=== PATIENT | female | born 1970 | race Caucasian/White ===

== ENCOUNTER 2018-08-12 08:08 | Inpatient (IN) ==
[2018-08-12 08:53] LABS: INFLUENZA A NEGATIVE (NEGATIVE); INFLUENZA B NEGATIVE (NEGATIVE)
[2018-08-12] MEDS ORDERED: DUONEB (A & A) INH ONE (09:42)
[2018-08-12] MEDS ORDERED: IMODIUM PO ONE (09:42)
[2018-08-12 10:04] LABS: BILIRUBIN URINE 1+ (NEGATIVE); BLOOD URINE NEGATIVE (NEGATIVE); CLARITY CLEAR (CLEAR); COLOR YELLOW; GLUCOSE URINE NEGATIVE (NEGATIVE); KETONE URINE NEGATIVE (NEGATIVE); LEUKOCYTES URINE NEGATIVE (NEGATIVE); NITRITE URINE NEGATIVE (NEGATIVE); PH URINE 6.5; PROTEIN URINE NEGATIVE (NEGATIVE); SP GRAVITY URINE 1.005; UROBILINOGEN URINE NORMAL
[2018-08-12 10:05] LABS: BASO# 0.04 X1000 (0.0-0.2); BASO% 0.3 % (0.0-0.8); EOS# 0.02 X1000 (0.0-0.7); EOS% 0.1 % (0.0-10.0); HEMATOCRIT 40.2 % (37.0-47.0); HEMOGLOBIN 13.1 g/dL (12.0-16.0); IMM GRAN# 0.05 X1000 (0.0-0.04); IMM GRAN% 0.4 % (0.0-0.5); LYMPH# 2.17 X1000 (1.2-3.4); LYMPH% 15.4 % (20.5-51.1); MCHC 32.6 g/dL (33-37); MCV 88.9 FL (81-99); MONO% 10.7 % (1.7-9.3); MPV 10.5 FL (7.4-10.4); NEUT# 10.27 X1000 (1.4-6.5); NEUT% 73.1 % (42.2-75.2); PLT 294 X1000 (130-400); RBC 4.52 XMIL (4.2-5.4); RDW 13.6 % (11.5-14.5); WBC 14.05 X1000 (4.8-10.8)
[2018-08-12 10:13] LABS: URINE EPITHELIAL CELLS <10 /HPF (<10); URINE SOURCE CLEAN CATCH
--- NOTE | 2018-08-12 10:37 | Diag Imaging Result Doc PS360 ---
EXAM: CHEST-2 VIEWS - 08/12/2018 HISTORY: cough TECHNIQUE: Chest two views COMPARISON: Portable exam of 04/09/2018 FINDINGS: Heart size is normal. There are calcified left hilar lymph nodes from old granulomatous disease similar to prior. There is ill-defined perihilar infiltrate on the left. There is no pleural effusion or pneumothorax identified. IMPRESSION: Ill-defined perihilar infiltrate on the left, suspicious for bronchopneumonia. Electronically signed by Gavin Berrios 08/12/2018 10:34 AM
[2018-08-12] MEDS ORDERED: COMPAZINE IV ONE (11:36)
[2018-08-12] MEDS ORDERED: BENADRYL IM ONE (11:36)
[2018-08-12] MEDS ORDERED: IMITREX SUBQ SUBQ ONE (11:52)
[2018-08-12] MEDS ORDERED: COGENTIN PO ONE (11:52)
[2018-08-12 11:54] LABS: BLOOD TYPE ARTERIAL; HCO3-(ACT) 21.6 mmoll (20.0-26.0); O2(CT) 17.9 mL/dL (15.0-23.0); O2HB 90.8 % (95.0-99.0); PCO2(98.6) 31 mmHg (35-45); PO2(98.6) 73 mmHg (60-100); SAMPLE BLOOD; SAO2 90.8 % (95.0-100.0); pH(98.6) 7.41 (7.35-7.45)
[2018-08-12 12:00] LABS: ALLEN TEST YES; MODALITY ROOM AIR
[2018-08-12] MEDS ORDERED: NS 3,000 ML IV ONE (12:34)
[2018-08-12] MEDS ORDERED: ROCEPHIN 2 GM in NS 50 ML IV ONE (12:35)
[2018-08-12 13:46] LABS: AGAP 14; ALBUMIN 3.2 g/dL (3.5-5.0); ALKALINE PHOSPHATASE 95 U/L (32-104); BUN 4 mg/dL (8-22); CALCIUM 8.4 mg/dL (8.8-10.2); CHLORIDE 107 mmol/L (98-107); COSMO 276; CREATININE 0.7 mg/dL (0.5-0.9); ESTIMATED GFR > 60; GLUCOSE 162 mg/dL (70-104); GOT 33 U/L (10-30); GPT 30 U/L (10-36); POTASSIUM 3.6 mmol/L (3.5-5.1); SODIUM 138 mmol/L (136-145); TCO2 17 mmol/L (25-35); TOTAL PROTEIN 6.5 g/dL (6.3-8.3)
[2018-08-12] MEDS ORDERED: MARCAINE 0.5% INJ ONE (14:53)
[2018-08-12] MEDS ORDERED: XYLOCAINE 2%/EPI 1:200,000 INJ ONE (14:53)
[2018-08-12] MEDS ORDERED: MARCAINE 0.5% PF ONE (15:03)
--- NOTE | 2018-08-12 15:35 | PROVIDER DOCUMENTATION ---
This chart was entered by Analisa Nicolas Scribe, acting as scribe for Maldonado Rubio MD. HPI-General Adult - General Chief Complaint: Cold Symptoms Stated Complaint: SWEATING / SORE THROAT / DIARREAH Time Seen by Provider: 08/12/18 09:00 Source: patient Allergies/Adverse Reactions: Patient Allergies Allergy/AdvReac Type Severity Reaction Status Date / Time trazodone Allergy Severe RASH Verified 08/12/18 14:49 ziprasidone HCl * Allergy Severe HEADACHE Verified 08/12/18 14:49 [From Geodon] ziprasidone mesylate * Allergy Severe HEADACHE Verified 08/12/18 14:49 [From Geodon] diphenhydramine Allergy SWELLING Verified 08/12/18 14:49 [From Benadryl] hemorrhoid cream Allergy Unknown Uncoded 08/12/18 14:49 Home Medications: Home Medication List Medication Instructions Recorded Confirmed Last Taken Type Tolterodine L.a. [Detrol LA] 4 mg PO DAILY #60 cap 11/23/17 08/12/18 05/18/18 Rx Gabapentin [Neurontin] 300 mg PO TID #90 capsule 11/25/17 08/12/18 05/19/18 18: 00 Rx Famotidine 40 mg PO HS 01/05/18 08/12/18 05/19/18 18:00 History Lisinopril/Hydrochlorothiazide 10 - 12.5 each PO DAILY 01/05/18 08/12/18 05:00 History [Lisinopril-Hctz 10-12.5 mg Tab] Ondansetron HCl 8 mg PO DAILY PRN PRN 01/05/18 05/20/18 05/18/18 History Ropinirole HCl 1 mg PO QHS 01/05/18 08/12/18 05/19/18 18:00 History Hydrocodone/APAP 5 mg/325 mg 1 ea PO TID PRN PRN #20 tab 01/08/18 05/20/1805/18 Rx [[place]-5] Rizatriptan [Maxalt] 10 mg PO DAILY PRN PRN #10 tab 01/08/18 08/12/18 05/19/18 Rx Biotin 1,000 mcg PO DAILY 05/20/18 05/20/18 05/19/18 05:00 History Chlorpheniramine Maleate 4 mg PO DAILY 05/20/18 05/20/18 05/19/18 05:00 History Divalproex E.r. [Depakote ER] 500 mg PO BID 05/20/18 05/20/18 05/19/18 18:00 History Divalproex Sodium 500 mg PO HS 05/20/18 08/12/18 05/19/18 18:00 History Duloxetine HCl [Cymbalta] 30 mg PO HS 05/20/18 05/20/18 05/19/18 18:00 History Duloxetine HCl [Cymbalta] 60 mg PO DAILY 05/20/18 08/12/18 05/19/18 05:00 History Etodolac 500 mg PO BID PRN PRN 05/20/18 08/12/18 05/19/18 18:00 History Ferrous Sulfate [Iron] 27 mg PO DAILY 05/20/18 05/20/18 05/19/18 18:00 History Hydrocodone/Acetaminophen [[place] 1 each PO Q4-6H PRN PRN #30 tablet 05/20/1809/30 Unknown Rx 7.5-325 Tablet] Hydroxyzine HCl 50 mg PO HS 05/20/18 06/14/18 05/19/18 18:00 History Levothyroxine Sodium [Synthroid] 50 mcg PO DAILY 05/20/18 08/12/18 05/19/18 05: 00 History Melatonin 10 mg PO HS 05/20/18 08/12/18 05/19/18 18:00 History Mirtazapine [Remeron] 15 mg PO HS 05/20/18 08/12/18 05/19/18 18:00 History Olanzapine 20 mg PO BID 05/20/18 08/12/18 05/19/18 18:00 History [place]-3S/Dha/Epa/Fish Oil [Fish 1 each PO DAILY 05/20/18 05/20/18 05/19/18 05: 00 History Oil 1,200 mg Softgel] Tizanidine HCl 4 mg PO HS 05/20/18 08/12/18 05/19/18 18:00 History Tolterodine Tartrate [Tolterodine 4 mg PO DAILY 05/20/18 05/20/18 05/19/18 05: 00 History Tartrate ER] Vit A/Vit C/Vit E/Zinc/Copper 1 each PO DAILY 05/20/18 05/20/18 05/19/18 05:00 History [Preservision Areds Softgel] Hydroxyzine [Atarax] 50 mg PO QHS #60 tab 06/14/18 08/12/18 Unknown Rx Albuterol 2.5MG/Ipratrop 0.5MG 3 ml INH Q6H PRN PRN #120 neb 08/12/18 Unknown Rx [Duoneb] Gabapentin 08/12/18 08/12/18 Unknown History Levofloxacin [Levaquin] 750 mg PO DAILY #10 tablet 08/12/18 Unknown Rx [place]-3S/Dha/Epa/Fish Oil [Fish 1 each PO DAILY 08/12/18 08/12/18 Unknown History Oil 1,200 mg Softgel] - History of Present Illness -Gen Adult Nature of Presenting Problems: 48 yof presents to ed with cc of cough, sorethroat, diaphoresis x 2 days with resolved fever last night and diarrhea that started this morning. Reports has tried sudafed, nyquil, honey tea and inhaler with no relief. Alberto is a 1/2 ppd smoker. Review of Systems - Adult - REVIEW OF SYSTEMS - ADULT Constitutional: reports: fever. denies: chills, fatique Eyes: reports: no symptoms reported Ears, Nose, Mouth & Throat: reports: throat pain. denies: ear pain, sinus problem Cardiovascular: denies: chest pain, irregular heart rate, orthopnea, syncope Respiratory: reports: cough. denies: shortness of breath, wheezing Gastrointestinal: reports: diarrhea. denies: abdominal pain, nausea, vomiting Genitourinary: denies: discharge, flank pain, hematuria Musculoskeletal: reports: no symptoms reported Integumentary: reports: no symptoms reported Neurological: denies: dizziness/vertigo, headache/migraines, numbness, seizure Psychiatric: reports: no symptoms reported Endocrine: denies: change in skin pigment, cold intolerance, heat intolerance Hematologic/Lymphatic: reports: no symptoms reported Allergic/Immunologic: reports: no symptoms reported All Other Systems: Reviewed and Negative Past History - Adult - PAST MEDICAL HISTORY-ADULT Review of Records: reports: Nursing Assessment Review, Medications Reviewed Major Childhood Illnesses: reports: denies history Cardiovascular: reports: HTN, hyperlipidemia Respiratory: reports: asthma, COPD, sleep apnea Gastrointestinal: reports: other Obstetrical/Gynecological: reports: denies history Genitourinary: reports: denies history Musculoskeletal: reports: chronic pain, intervertebral disc disease Neurological: reports: CVA, Seizures/Epilepsy Psychiatric: reports: bipolar, depression, psychiatric problems, schizophrenia Endocrine/Immune: reports: Diabetes Other Conditions: reports: denies history - PRIOR SURGERIES/PROCEDURES Surgical/Procedure History: reports: hysterectomy, BTL, tonsillectomy, hernia repair, orthopedic (extremity) (knee), gastric bypass, other (T&A) - IMMUNIZATION STATUS Childhood Immunizations: See Nurse Assessment Flu Vaccine: See Nurse Assessment - FAMILY HISTORY Family History: reviewed, not pertinent - SOCIAL HISTORY Smoking: cigarettes, less than 1 pack/day Provider spent 3-5 mins advising pt. on dangers of tobacco.: Discussed manners to quit use, and f/u contacts for add'l counseling. Substance Use: none/never Physical Exam-General - PHYSICAL EXAM-ADULT Initial Vital Signs Reviewed: Yes - CONSTITUTIONAL General Appearance: appears well, alert, mild distress - EYES Eyes: PERRL/EOMI, pink conjunctivae - HEAD, EARS, NOSE, MOUTH & THROAT HENMT: normal ENT inspection, TMs normal, pharynx normal. negative: pharyngeal erythema - NECK Neck: non-tender, full range of motion, supple, normal inspection - RESPIRATORY Respiratory: chest non-tender, lungs clear, normal breath sounds, no pleuratic chest pain, no respiratory distress, no accessory muscle use, other (does have cough on exam) - CARDIOVASCULAR Cardiovascular: tachycardia - GASTROINTESTINAL (ABDOMEN) Abdominal Exam: soft, no organomegaly, no pulsatile mass - MUSCULOSKELETAL Extremity: normal range of motion, non-tender, normal gait - SKIN Integumentary: normal color, normal turgor, warm/dry - NEUROLOGIC Neurologic: station master II-XII nml as tested, grossly normal, no motor/sensory deficits - PSYCHIATRIC Psych/Mental Status: normal mood/affect, normal thought content, normal thought process, oriented x 3 Progress - PLAN OF CARE/RESULTS Progress/Plan/Lab Results: Vital Signs - 8 hr 08/12/18 08:20 Temperature 98.3 F Pulse Rate 104 H Respiratory Rate 19 Blood Pressure 134/89 O2 Sat by Pulse Oximetry 97 Laboratory Results - last 24 hr 08/12/18 08/12/18 08:24 08:24 Influenza A (Rapid) NEGATIVE Influenza B (Rapid) NEGATIVE Group A Strep Rapid NEGATIVE Orders Category Date Time Status DIRECT STREP PL Stat Lab 08/12/18 08:[address] Stat Lab 08/12/18 08:24 Completed Result Diagrams: 08/12/18 09:45 08/12/18 09:45 - REASSESSMENT Reassessment #1 Time Reassessed: 11:30 (Pt requesting admission, Dr. Hutton paiged at 11:30. Pt reports now has a headached.) Reassessment #2 Time Reassessed: 11:50 Status: unchanged (pt started a new migraine headache. She states that she took a maxalt 10 mg at home early this morning) Reassessment #3 Time Reassessed: 15:33 Status: improving (GONB worked for the headache, family feels ok with care at home. Dr Hutton wants her home) - XRAY 1 XRAY: Bilateral XRAY Study: Chest Impression: Abnormal (IMPRESSION: Ill-defined perihilar infiltrate on the left, suspicious for bronchopneumonia. Electronically signed by Gavin Berrios 10:34 AM) - CONSULTS/PCP/HOSPITALIST Notification #1 *Consult/PCP/Hospitalist*: Dr. Hutton Time Discussed: 11:37 (Dr. Rubio and Dr. Hutton discussed admission of this pt and has agreed she does not meet admission criteria and can be treated outpatient.) Procedures - ADDITIONAL PROCEDURES Additional Procedure: Digital Nerve Block (greater occipital nerve block left and right side) Consent Form Signed if Applicable?: Yes Anesthetic: 2%, Lidocaine/Xylocaine, Bupivicaine/Marcaine Description of Procedure (Other): Pt still complains of headache will be doing a greater occipital nerve block. Departure - Departure Date of Disposition Decision: 08/12/18 Time of Disposition Decision: 11:42 DIAGNOSIS: Pneumonia Qualifiers: Pneumonia type: due to unspecified organism Laterality: bilateral Lung location : unspecified part of lung Qualified Code(s): J18.9 - Pneumonia, unspecified organism Migraine Qualifiers: Migraine type: with aura Status migrainosus presence: without status migrainosus Intractability: not intractable Qualified Code(s): G43.109 - Migraine with aura, not intractable, without status migrainosus Disposition: HOME 01 Certified Medical Emergency: Emergent Condition: Stable Additional Freetext Instructions: ED Follow Up Instructions: 1. do not take hydroxyzine while using this antibiotic You have been treated by a care provider in the Emergency Department. These instructions are being provided to you so you can have an understanding of how to care for yourself upon discharge. Upon discharge from the Emergency Department, you are responsible for making arrangements for follow-up care by a physician of your choice. Take all prescribed medications as directed. Return to the Emergency Department immediately for any new or worsening symptoms. You may call the Physician Referral phone number at [phone] to obtain a list of Physicians who are taking new patients. Prescriptions: Albuterol 2.5MG/Ipratrop 0.5MG [Duoneb] 3 ml INH Q6H PRN PRN #120 neb PRN Reason: wheezing, short of breath Levofloxacin [Levaquin] 750 mg PO DAILY #10 tablet Referrals and Follow-Ups: None,PCP [Primary Care Provider] - - Critical Care Note This patient required my direct & personal management of CC.: No Attestation - Physician/ CARLOS Attestation Patient care was provided by Advanced Practice Provider:: No The physician spent face to face time with patient:: Yes Advanced Practice Provider documentation review:: Supervising physician onsite and consulted in the evaluation and care of this patient. The physician did have a face to face encounter with the patient. This chart was documented by the indicated scribe, (Analisa Nicolas Scribe) and accurately reflects the services I performed and decisions made by me, Maldonado Rubio MD, as attested by the provider's signature.
[2018-08-12] MEDS ORDERED: TYLENOL ONE (15:49)
[2018-08-12] MEDS ORDERED: TYLENOL PO ONE (15:51)
[2018-08-12] MEDS ORDERED: NS 1,000 ML IV SCH (18:06)
[2018-08-12] MEDS ORDERED: SOLU-MEDROL IV SCH (18:06)
[2018-08-12] MEDS ORDERED: ZOFRAN IV PRN (18:06)
[2018-08-12] MEDS ORDERED: TYLENOL PO PRN (18:06)
--- NOTE | 2018-08-12 18:10 | HISTORY AND PHYSICAL ---
PRIMARY CARE PHYSICIAN: Dr. Santa. CHIEF COMPLAINT: Cough, sore throat, diaphoresis, shortness of breath and a headache for 2 days that has progressively worsened. HISTORY OF PRESENTING ILLNESS: This is a 48-year-old female who presents to [facility] ER with her mom stating that she has had a cough sore throat, diaphoresis, headache and shortness of breath for the past 2 days that has progressively worsened. She also complained of a headache and was given a digital nerve block with 2% lidocaine, Xylocaine and bupivacaine and Marcaine in the emergency room. Headache is slightly improved. Her workup in the emergency room showed on arrival a temperature of 98.3 degrees. She was saturating 97% on room air. About 1 hour ago her temperature was 101.2 degrees but when I saw her she was covered up with 4 blankets. I removed these blankets. She had a white blood cell count was 14.05. We did a chest x-ray that showed an ill-defined perihilar infiltrate on the left suspicious for bronchopneumonia so she is being admitted for further evaluation and treatment. It is noted that she is a pack a day smoker and has done so for approximately 30 years. I discussed smoking cessation with this patient, who did verbalize understanding. She does have a strong psychiatric history of schizophrenia, bipolar, OCD, also. PAST MEDICAL HISTORY: Includes hypertension, hyperlipidemia, COPD, asthma, CVA, seizures, bipolar, schizophrenia and diabetes type 2. PAST SURGICAL HISTORY: Hysterectomy, bilateral tubal ligation. Tonsillectomy, gastric bypass and a knee replacement. FAMILY HISTORY: Reviewed and noncontributory. SOCIAL HISTORY: She currently lives alone but is cared for by her mother who lives next door to her. Smokes a pack of cigarettes a day and has done so for 30 years and denies any alcohol or illicit drug use. ALLERGIES: Trazodone, ziprasidone, diphenhydramine and hemorrhoid cream. HOME MEDICATIONS: Will need to be verified and restarted as appropriate. LABORATORY DATA: Showed a white blood cell count of 14.05. Hemoglobin 13.1, hematocrit 40.2, platelets 294,000. ABG with a pH of 7.41, pCO2 31, PO2 73, bicarb 21.6. This was on room air. Sodium 138, potassium 3.6, chloride 107, CO2 17, BUN of 4, creatinine 0.7, glucose 162, plasma lactate of 1.7, urinalysis was negative. Influenza A and B were negative. Group A strep negative. Chest x-ray showed an ill-defined perihilar infiltrate on the left suspicious for bronchopneumonia. REVIEW OF SYSTEMS: She was positive for a subjective fever, chills, body aches, sore throat, diaphoresis, headache shortness of breath and nonproductive cough. She denied any chest pain, abdominal pain, constipation, diarrhea, nausea, vomiting, or burning or hurting with urination. PHYSICAL EXAMINATION: VITAL SIGNS: On arrival, she had a temperature of 98.3 degrees, pulse 104, respirations 19, blood pressure 134/89, saturating 97% on room air. Almost 8 hours later she had a temperature of 101.2 degrees. Again she was covered in 4 heavy blankets so we removed those and will recheck it again. HEENT: Normocephalic and atraumatic. Normal ENT inspection. Oropharynx and nares are clear. EYES: Pupils are equal, round, reactive to light and accommodation. Extraocular movements are intact. NECK: Normal inspection. Normal range of motion. LUNGS: Clear to auscultation bilaterally with equal lung expansion and chest wall movement. HEART: Regular rate and rhythm. No murmurs, rubs, or gallops. ABDOMEN: Soft, nontender, nondistended. Bowel sounds are present x4 quadrants. MUSCULOSKELETAL: She has 5/5 strength x4 extremities. NEUROLOGICAL: The cranial nerves 2-12 appear grossly intact. ASSESSMENT: 1. Left bronchial pneumonia. 2. Acute chronic obstructive pulmonary disease exacerbation. 3. Leukocytosis secondary to #1 and #2. 4. Fever. 5. Tobacco abuse. PLAN: She is being admitted to the medical unit. Placed on O2 per protocol. We will place her on Rocephin and azithromycin. DuoNeb q.4 hours. We will recheck a CBC, BMP in the a.m. We will place her on Solu-Medrol 80 mg IV q.8 hours and wean as she improves. Discussed again smoking cessation with this patient. We will give her a nicotine patch 21 mg transdermally q.24 and further orders after being seen by attending. Dictated by SHAHAB Loo for Juan Manuel Hutton MD cc: SHAHAB Loo MD
[2018-08-12] MEDS ORDERED: DUONEB (A & A) ONE (18:12)
[2018-08-12] MEDS: ZITHROMAX 500 MG/NS 500 MG/250 ML IVPB IV SCH (18:27)
[2018-08-12] MEDS: DUONEB (A & A) INH SCH (18:40)
[2018-08-12] MEDS ORDERED: MOTRIN PO PRN (18:49)
[2018-08-12] MEDS ORDERED: MAXALT PO PRN (19:43)
[2018-08-12] MEDS: SOLU-MEDROL IV SCH (19:45)
[2018-08-12] MEDS: NICODERM PATCH TD SCH (19:49)
[2018-08-12] MEDS: NS 1,000 ML IV SCH (19:49)
--- NOTE | 2018-08-12 20:00 | HISTORY AND PHYSICAL ---
Briefly patient is 48. She seems to be doing not well for last several days. She has had shortness of breath, she has had multiple issues. She came in with a pneumonia. Her chest x-ray to me is a bit odd I am perhaps over reading it but it feels like she has got a left perihilar granuloma or almost a mass I do not know it is almost very strange. I guess it is a granuloma because it is heavily calcified and it is behind the left mainstem but pneumonia on both sides, seems to be doing okay but has persistent fevers, white count, she has rhonchi on exam so need to feel that she is doing better. In any case we are going to see how she does. Her flu test was negative and she was doing better. We will continue empiric antibiotics. She has been started on Rocephin and azithromycin and we will continue gentle hydration and follow. I am going to cut down on her steroids a little bit. She has a fairly extensive psychiatric history. I just do not want her to have significant issues. I think her breathing has improved since initially. Discharge condition is pending afebrile state and improvement. I am going to pursue a CT of her thorax as well just because I am just not sure about this large granuloma but we will continue to follow closely. cc: Juan Manuel Hutton MD
[2018-08-12] MEDS: ZYPREXA PO SCH (21:38)
[2018-08-12] MEDS: DEPAKOTE PO SCH (21:38)
[2018-08-12] MEDS: PEPCID PO SCH (21:38)
[2018-08-12] MEDS: MELATONIN PO SCH (21:39)
[2018-08-12] MEDS: REQUIP PO SCH (21:39)
[2018-08-12] MEDS: REMERON SOLTAB PO SCH (21:39)
[2018-08-12] MEDS: ZANAFLEX PO SCH (21:39)
[2018-08-12] MEDS ORDERED: PNEUMOVAX 23 IM ONE (22:07)
[2018-08-13] MEDS: DUONEB (A & A) INH SCH ×7 (00:19→23:07)
[2018-08-13] MEDS: NS 1,000 ML IV SCH ×2 (01:43→20:24)
[2018-08-13] MEDS: SOLU-MEDROL IV SCH ×2 (03:24→11:28)
[2018-08-13] MEDS: LOVENOX SUBQ SCH (05:23)
[2018-08-13 06:17] LABS: BASO# 0.03 X1000 (0.0-0.2); BASO% 0.2 % (0.0-0.8); HEMATOCRIT 37.9 % (37.0-47.0); HEMOGLOBIN 12.1 g/dL (12.0-16.0); IMM GRAN# 0.06 X1000 (0.0-0.04); IMM GRAN% 0.4 % (0.0-0.5); LYMPH# 1.27 X1000 (1.2-3.4); LYMPH% 9.3 % (20.5-51.1); MCH 28.6 PG (27-31); MCHC 31.9 g/dL (33-37); MCV 89.6 FL (81-99); MONO# 1.04 X1000 (0.11-0.59); MONO% 7.6 % (1.7-9.3); MPV 10.7 FL (7.4-10.4); NEUT# 11.28 X1000 (1.4-6.5); NEUT% 82.5 % (42.2-75.2); PLT 293 X1000 (130-400); RBC 4.23 XMIL (4.2-5.4); RDW 13.9 % (11.5-14.5); WBC 13.68 X1000 (4.8-10.8)
[2018-08-13 06:36] LABS: AGAP 14; BUN 5 mg/dL (8-22); CALCIUM 8.3 mg/dL (8.8-10.2); CHLORIDE 106 mmol/L (98-107); COSMO 281; CREATININE 0.6 mg/dL (0.5-0.9); ESTIMATED GFR > 60; GLUCOSE 178 mg/dL (70-104); POTASSIUM 4.3 mmol/L (3.5-5.1); SODIUM 140 mmol/L (136-145); TCO2 20 mmol/L (25-35)
[2018-08-13] MEDS: NICODERM PATCH TD SCH (08:26)
[2018-08-13] MEDS: ZYPREXA PO SCH ×2 (08:27→20:26)
[2018-08-13] MEDS: SYNTHROID PO SCH (08:27)
[2018-08-13] MEDS: CYMBALTA PO SCH (08:28)
[2018-08-13] MEDS: NEURONTIN PO SCH ×3 (08:30→20:26)
[2018-08-13] MEDS: DETROL LA PO SCH (08:38)
--- NOTE | 2018-08-13 10:21 | Diag Imaging Result Doc PS360 ---
EXAM: CT THORAX W/CONTRAST INDICATION: pneumonia TECHNIQUE: This exam was performed using automated exposure control, adjustment of mA or kV according to patient size, and/or use of iterative reconstruction technique. COMPARISON: 12/13/2015 FINDINGS: There are patchy dense groundglass consolidation throughout both lungs but more extensive on the left consistent with pneumonia. Although this may represent infectious pneumonia, inflammatory causes such as eosinophilic pneumonia can have this appearance. There are no pleural fluid collections and there is no pneumothorax. There are calcified mediastinal and left hilar lymph nodes indicating prior granulomatous disease. No other significant lymphadenopathy is appreciated. There is no cardiomegaly. There is no abnormal pericardial fluid collection. Limited views of the upper abdomen reveal several simple appearing renal cysts. There are postsurgical changes associated with the stomach. The upper abdomen is essentially unremarkable, otherwise. IMPRESSION: Dense patchy groundglass consolidation throughout both lungs, worst on the left, indicating pneumonia. Please see above discussion. Electronically signed by Ki Parker 08/13/2018 10:18 AM
[2018-08-13] MEDS: ROCEPHIN 1 GM in NS 50 ML IV SCH (11:28)
--- NOTE | 2018-08-13 14:57 | PROGRESS NOTE ---
DATE: 08/13/2018 SUBJECTIVE: The patient has no focal complaints. OBJECTIVE: Vital Signs: Blood pressure is 128/57, heart rate 90, respiratory rate 22, temperature 98.5 degrees. Last temperature was 101.9 degrees yesterday at 6:30; she has not had a fever since. Cardiovascular: Regular rate and rhythm. Pulmonary: Bilateral breath sounds. Clear to auscultation. GI: Soft, nontender, nondistended. Bowel sounds are positive. Extremity Exam: No clubbing or cyanosis. Lymphatic Exam: No peripheral edema. Neurological Exam: Nonfocal. LABORATORY DATA: White count is down to 13, H and H 12 and 37, platelets 293. Basic was normal, except for sugar of 211. PROBLEM LIST: 1. Multilobar pneumonia. We will see how things go there. She seems to be breathing better on current antibiotics. 2. Chronic obstructive pulmonary disease exacerbation is also slowly improving. I am going to wean steroids rapidly just because she is diabetic, and I think it may be exacerbating things. Again, she has a bipolar history. I just do not want to worsen any manic symptoms potentially. 3. Hypertension appears to be stable. 4. Diabetes. She is not on any long-term medicines. It is reported she is diabetic. Her sugar is above 200. We will check an A1c, monitor blood sugars, and see how she does. 5. Bipolar disorder. Again, appears to be very compensated. DISPOSITION: She seems better. I anticipate she is going to be discharged in the next 1 to 2 days, anticipating foregoing any hopefully major problems. cc: Juan Manuel Hutton MD
[2018-08-13] MEDS: ZITHROMAX 500 MG/NS 500 MG/250 ML IVPB IV SCH (17:35)
[2018-08-13] MEDS: ZANAFLEX PO SCH (20:25)
[2018-08-13] MEDS: DEPAKOTE PO SCH (20:25)
[2018-08-13] MEDS: MELATONIN PO SCH (20:25)
[2018-08-13] MEDS: PEPCID PO SCH (20:25)
[2018-08-13] MEDS: REQUIP PO SCH (20:26)
[2018-08-13] MEDS ORDERED: HUMULIN R SUBQ SCH (21:00)
[2018-08-13] MEDS: REMERON SOLTAB PO SCH (23:05)
[2018-08-14] MEDS: SOLU-MEDROL IV SCH ×3 (00:03→21:27)
[2018-08-14] MEDS: DUONEB (A & A) INH SCH ×6 (03:02→23:04)
[2018-08-14 06:13] LABS: AGAP 17; BUN 7 mg/dL (8-22); CALCIUM 8.6 mg/dL (8.8-10.2); CHLORIDE 104 mmol/L (98-107); COSMO 287; CREATININE 0.6 mg/dL (0.5-0.9); ESTIMATED GFR > 60; GLUCOSE 201 mg/dL (70-104); POTASSIUM 4.8 mmol/L (3.5-5.1); SODIUM 142 mmol/L (136-145); TCO2 21 mmol/L (25-35)
[2018-08-14 06:19] LABS: BASO# 0.03 X1000 (0.0-0.2); BASO% 0.2 % (0.0-0.8); HEMATOCRIT 35.5 % (37.0-47.0); HEMOGLOBIN 11.3 g/dL (12.0-16.0); IMM GRAN# 0.07 X1000 (0.0-0.04); IMM GRAN% 0.6 % (0.0-0.5); LYMPH# 1.45 X1000 (1.2-3.4); LYMPH% 11.9 % (20.5-51.1); MCH 28.5 PG (27-31); MCHC 31.8 g/dL (33-37); MCV 89.6 FL (81-99); MONO# 0.76 X1000 (0.11-0.59); MONO% 6.2 % (1.7-9.3); MPV 10.9 FL (7.4-10.4); NEUT# 9.89 X1000 (1.4-6.5); NEUT% 81.1 % (42.2-75.2); PLT 317 X1000 (130-400); RBC 3.96 XMIL (4.2-5.4)
[2018-08-14] MEDS: LOVENOX SUBQ SCH (06:21)
[2018-08-14] MEDS: SYNTHROID PO SCH (06:21)
[2018-08-14 06:30] LABS: BANDS 3 % (0-1); LYMPHS 9 % (21-51); MONO 8 % (1-9); SEGS 77 % (42-75)
[2018-08-14 06:33] LABS: OVALOCYTES OCCASIONAL; POIKILOCYTOSIS OCCASIONAL; TARGET CELLS OCCASIONAL
[2018-08-14 06:34] LABS: STOMATOCYTES OCCASIONAL
[2018-08-14] MEDS ORDERED: MAXALT MLT PO PRN (07:00)
[2018-08-14] MEDS: HUMULIN R (PARKWAY) SUBQ SCH ×4 (07:03→21:29)
[2018-08-14] MEDS: ZYPREXA PO SCH ×2 (08:20→21:27)
[2018-08-14] MEDS: NICODERM PATCH TD SCH (08:21)
[2018-08-14] MEDS: NEURONTIN PO SCH ×2 (08:21→17:05)
[2018-08-14] MEDS: CYMBALTA PO SCH ×2 (08:21→21:28)
[2018-08-14] MEDS: DETROL LA PO SCH ×2 (08:21→21:28)
[2018-08-14] MEDS: NS 1,000 ML IV SCH (13:10)
[2018-08-14] MEDS: ROCEPHIN 1 GM in NS 50 ML IV SCH (13:10)
[2018-08-14] MEDS: ZITHROMAX PO SCH (17:05)
[2018-08-14] MEDS ORDERED: TORADOL IV ONE (17:40)
[2018-08-14] MEDS: PROTONIX IV SCH (18:43)
[2018-08-14] MEDS: ROBITUSSIN-AC PO PRN (18:43)
[2018-08-14] MEDS: SODIUM CHLORIDE 0.9% INJ SCH (18:44)
[2018-08-14] MEDS: MUCOMYST 20% INH SCH (19:22)
--- NOTE | 2018-08-14 20:47 | PROGRESS NOTE ---
DATE: 08/14/2018 SUBJECTIVE: She does not feel good today. She feels like she has got diffuse aches and pains. OBJECTIVE: Vital Signs: Blood pressure is 129/61, heart rate of 111, respiratory 19, temperature 97.6. Cardiovascular: Regular rate and rhythm. Pulmonary: Bilateral breath sounds. Clear to auscultation. She has diffuse rhonchi and expiratory wheezes. Gastrointestinal: Soft, nontender, nondistended. Bowel sounds positive. LABORATORY DATA: White count is 12, hemoglobin and hematocrit 11 and 35, platelets 317,000. Basic was normal. PROBLEM LIST: 1. Multilobar pneumonia, gram negative type. We will continue her current antibiotics. Overall, I think she is improving. 2. COPD exacerbation. We will increase the Solu-Medrol. We will continue to follow closely. 3. Bipolar. Appears to be stable on current medications. 4. Hypertension. We will continue her regular medications and follow. 5. Diabetes. A1c is 6, which does not technically meet criteria, but she has had a couple blood sugars that are elevated. This may be related to steroid-induced hyperglycemia. We will continue to monitor. She is on sliding scale. 6. Bipolar, appears to be stable. 7. I am going to repeat her x-ray tomorrow and see if there has been any major improvement. cc: Juan Maneul Hutton MD
[2018-08-14] MEDS: MELATONIN PO SCH (21:26)
[2018-08-14] MEDS: ZANAFLEX PO SCH (21:27)
[2018-08-14] MEDS: REMERON SOLTAB PO SCH (21:27)
[2018-08-14] MEDS: REQUIP PO SCH (21:27)
[2018-08-14] MEDS: PEPCID PO SCH (21:28)
[2018-08-14] MEDS: DEPAKOTE PO SCH (21:28)
[2018-08-15] MEDS: DUONEB (A & A) INH SCH ×6 (02:56→23:05)
[2018-08-15] MEDS: ROBITUSSIN-AC PO PRN ×2 (04:00→15:49)
[2018-08-15] MEDS: SOLU-MEDROL IV SCH ×3 (04:12→20:27)
[2018-08-15] MEDS: LOVENOX SUBQ SCH (05:16)
[2018-08-15] MEDS: NS 1,000 ML IV SCH (05:20)
[2018-08-15] MEDS: HUMULIN R (PARKWAY) SUBQ SCH ×3 (06:03→18:00)
[2018-08-15] MEDS: SYNTHROID PO SCH (06:07)
[2018-08-15 06:30] LABS: BASO# 0.04 X1000 (0.0-0.2); BASO% 0.3 % (0.0-0.8); EOS# 0.01 X1000 (0.0-0.7); EOS% 0.1 % (0.0-10.0); HEMOGLOBIN 11.5 g/dL (12.0-16.0); IMM GRAN# 0.14 X1000 (0.0-0.04); IMM GRAN% 1.2 % (0.0-0.5); LYMPH# 1.43 X1000 (1.2-3.4); LYMPH% 12.1 % (20.5-51.1); MCH 28.6 PG (27-31); MCHC 31.9 g/dL (33-37); MCV 89.6 FL (81-99); MONO# 0.63 X1000 (0.11-0.59); MONO% 5.3 % (1.7-9.3); MPV 11.1 FL (7.4-10.4); PLT 337 X1000 (130-400); RBC 4.02 XMIL (4.2-5.4); WBC 11.85 X1000 (4.8-10.8)
[2018-08-15 06:50] LABS: AGAP 13; BUN 10 mg/dL (8-22); CALCIUM 8.5 mg/dL (8.8-10.2); CHLORIDE 106 mmol/L (98-107); COSMO 288; CREATININE 0.5 mg/dL (0.5-0.9); ESTIMATED GFR > 60; GLUCOSE 164 mg/dL (70-104); POTASSIUM 5.2 mmol/L (3.5-5.1); SODIUM 143 mmol/L (136-145); TCO2 24 mmol/L (25-35)
[2018-08-15 06:54] LABS: LYMPHS 15 % (21-51); MONO 5 % (1-9); SEGS 85 % (42-75)
[2018-08-15] MEDS: MUCOMYST 20% INH SCH ×2 (07:24→17:52)
--- NOTE | 2018-08-15 07:35 | Diag Imaging Result Doc PS360 ---
EXAM: CHEST-2 VIEWS HISTORY: hypoxia TECHNIQUE: Chest, two views COMPARISON: 08/12/2018 FINDINGS: There are infiltrates in both mid lungs. The heart is not enlarged. The vessels are not distended. No pleural effusions. IMPRESSION: Bilateral pneumonia. Electronically signed by Kevon Lafleur 08/15/2018 7:32 AM
[2018-08-15] MEDS: ZYPREXA PO SCH ×2 (08:37→20:25)
[2018-08-15] MEDS: CYMBALTA PO SCH ×2 (08:38→20:26)
[2018-08-15] MEDS: DEPAKOTE PO SCH ×2 (08:39→20:26)
[2018-08-15] MEDS: PRINIVIL PO SCH (08:39)
[2018-08-15] MEDS: HYDROCHLOROTHIAZIDE PO SCH (08:39)
[2018-08-15] MEDS: NEURONTIN PO SCH ×3 (08:39→18:02)
[2018-08-15] MEDS: NICODERM PATCH TD SCH (08:39)
[2018-08-15] MEDS: ROCEPHIN 1 GM in NS 50 ML IV SCH (12:30)
[2018-08-15] MEDS ORDERED: MUCOMYST 20% INH ONE (13:53)
[2018-08-15] MEDS ORDERED: LASIX IV ONE (14:59)
--- NOTE | 2018-08-15 15:24 | PROGRESS NOTE ---
DATE: 08/15/2018 SUBJECTIVE: The patient has no focal complaints. OBJECTIVE: Vital Signs: Blood pressure is 110/68, heart rate of 80, respiratory rate 22, temperature 98.4 degrees, satting 90% on 3 L. Cardiovascular: Regular rate and rhythm. Pulmonary: Bilateral breath sounds. Clear to auscultation. GI: Soft, nontender, nondistended. Bowel sounds are positive. LABORATORY DATA: White count 11, H and H 11 and 36, platelets 337. Potassium 5.2. PROBLEM LIST: 1. Multilobar pneumonia, gram-negative type. Clinically I think she is doing a little bit better. She is currently on Rocephin which I may switch her to cefepime just for broader coverage and see how she does. 2. She is having productive sputum. We will continue pulmonary toilet and follow closely. 3. Diabetes appears to be well controlled. Continue regular medications. 4. Hypertension is stable on current medications. 5. Chronic obstructive pulmonary disease exacerbation. We will continue treatments. She is on breathing treatments, steroids. I will not wean today; there was some concern that we weaned yesterday or the day before, and she decompensated somewhat. So, we will hold off right now. I may give her also 1 dose of diuretic. DISPOSITION: Anticipate discharge hopefully in the next couple days. cc: Juan Manuel Hutton MD
[2018-08-15] MEDS: MAXIPIME 1 GM in NS 50 ML IV SCH (15:38)
[2018-08-15] MEDS: PROTONIX IV SCH (18:00)
[2018-08-15] MEDS: SODIUM CHLORIDE 0.9% INJ SCH (18:00)
[2018-08-15] MEDS: ZITHROMAX PO SCH (18:02)
[2018-08-15] MEDS ORDERED: MUCOMYST 20% INH SCH (19:30)
[2018-08-15] MEDS: MELATONIN PO SCH (20:25)
[2018-08-15] MEDS: DETROL LA PO SCH (20:26)
[2018-08-15] MEDS: REMERON SOLTAB PO SCH (20:26)
[2018-08-15] MEDS: REQUIP PO SCH (20:26)
[2018-08-15] MEDS: ZANAFLEX PO SCH (20:26)
[2018-08-15] MEDS: PEPCID PO SCH (20:26)
[2018-08-16] MEDS: DUONEB (A & A) INH SCH ×6 (02:32→23:06)
[2018-08-16] MEDS: HUMULIN R (PARKWAY) SUBQ SCH ×5 (03:15→21:01)
[2018-08-16] MEDS: SOLU-MEDROL IV SCH ×2 (04:47→12:00)
[2018-08-16] MEDS: MAXIPIME 1 GM in NS 50 ML IV SCH ×2 (04:47→16:40)
[2018-08-16] MEDS: LOVENOX SUBQ SCH (06:21)
[2018-08-16] MEDS: SYNTHROID PO SCH (06:21)
[2018-08-16] MEDS: MUCOMYST 20% INH SCH ×3 (07:17→19:43)
[2018-08-16] MEDS: INCRUSE ELLIPTA INH SCH ×2 (07:17→20:58)
[2018-08-16 07:45] LABS: BASO% 0.9 % (0.0-0.8); HEMATOCRIT 36.8 % (37.0-47.0); IMM GRAN# 0.46 X1000 (0.0-0.04); IMM GRAN% 4.4 % (0.0-0.5); LYMPH# 1.74 X1000 (1.2-3.4); LYMPH% 16.5 % (20.5-51.1); MCH 28.8 PG (27-31); MCHC 32.6 g/dL (33-37); MCV 88.2 FL (81-99); MONO# 0.61 X1000 (0.11-0.59); MONO% 5.8 % (1.7-9.3); MPV 9.9 FL (7.4-10.4); NEUT# 7.66 X1000 (1.4-6.5); NEUT% 72.4 % (42.2-75.2); PLT 425 X1000 (130-400); RBC 4.17 XMIL (4.2-5.4); RDW 13.6 % (11.5-14.5); WBC 10.57 X1000 (4.8-10.8)
[2018-08-16 08:05] LABS: ANISOCYTOSIS 1+; BANDS 1 % (0-1); LYMPHS 10 % (21-51); MONO 5 % (1-9); SEGS 82 % (42-75)
[2018-08-16 08:14] LABS: AGAP 12; BUN 11 mg/dL (8-22); CALCIUM 8.6 mg/dL (8.8-10.2); CHLORIDE 102 mmol/L (98-107); COSMO 286; CREATININE 0.6 mg/dL (0.5-0.9); ESTIMATED GFR > 60; GLUCOSE 168 mg/dL (70-104); MAGNESIUM 2.1 mg/dL (1.5-2.7); POTASSIUM 4.4 mmol/L (3.5-5.1); SODIUM 142 mmol/L (136-145); TCO2 28 mmol/L (25-35)
[2018-08-16] MEDS: ZYPREXA PO SCH ×2 (08:28→21:00)
[2018-08-16] MEDS: PRINIVIL PO SCH (08:29)
[2018-08-16] MEDS: NEURONTIN PO SCH ×3 (08:29→16:40)
[2018-08-16] MEDS: HYDROCHLOROTHIAZIDE PO SCH (08:29)
[2018-08-16] MEDS: NICODERM PATCH TD SCH (08:29)
[2018-08-16] MEDS: CYMBALTA PO SCH ×2 (08:29→21:01)
[2018-08-16] MEDS: DEPAKOTE PO SCH ×2 (08:29→21:00)
[2018-08-16] MEDS: ZITHROMAX PO SCH (16:40)
[2018-08-16] MEDS: PROTONIX IV SCH (17:01)
[2018-08-16] MEDS: SODIUM CHLORIDE 0.9% INJ SCH (17:02)
[2018-08-16] MEDS: REMERON SOLTAB PO SCH (20:59)
[2018-08-16] MEDS: ZANAFLEX PO SCH (21:00)
[2018-08-16] MEDS: MELATONIN PO SCH (21:00)
[2018-08-16] MEDS: DETROL LA PO SCH (21:00)
[2018-08-16] MEDS: PEPCID PO SCH (21:00)
[2018-08-16] MEDS: REQUIP PO SCH (21:00)
--- NOTE | 2018-08-16 21:19 | PROGRESS NOTE ---
DATE: 08/16/2018 SUBJECTIVE: Patient has no major complaints. She looks a little bit better. She says she is feeling better this probably 1st day she said that since she has been here. OBJECTIVE: Blood pressure is 125/46, heart rate of 86, respiratory rate of 18, temperature 97.9 degrees, 91% saturation on 2 L.Cardiovascular: Regular rate and rhythm. Pulmonary: Bilateral breath sounds clear to auscultation. GI: Soft, nontender, nondistended. Bowel sounds are positive. Rhonchi is better, I do not hear any wheezing. LAB: White count is down to 10, hemoglobin and hematocrit 12 and 36, platelets 425,000. Basic was normal. PROBLEM LIST: 1. Multilobar pneumonia presumably a gram-negative type pneumonia. We will continue treatment. I think she is improving, we dared suggest discharged I think yesterday and her family got very upset and berated the nurse apparently but she seems to be improving so I think possibly home the next 1 to 2 days. 2. Bipolar. She is well controlled. We have not had any issues with that. 3. Chronic obstructive pulmonary disease exacerbation. She seems to be doing better. Will titrate down on her steroids. DISPOSITION: Again I anticipate discharge next 1 to 2 days. She may need home oxygen hopefully not but we will evaluate that prior to discharge. cc: Juan Manuel Hutton MD
[2018-08-17] MEDS: SOLU-MEDROL IV SCH ×2 (00:16→13:10)
[2018-08-17] MEDS: DUONEB (A & A) INH SCH ×4 (03:36→16:10)
[2018-08-17] MEDS: MAXIPIME 1 GM in NS 50 ML IV SCH ×2 (05:51→17:05)
[2018-08-17] MEDS: LOVENOX SUBQ SCH (05:52)
[2018-08-17] MEDS: SYNTHROID PO SCH ×2 (05:52→06:02)
[2018-08-17] MEDS: HUMULIN R (PARKWAY) SUBQ SCH ×3 (06:15→16:48)
[2018-08-17 07:10] LABS: AGAP 14; BUN 15 mg/dL (8-22); CALCIUM 8.4 mg/dL (8.8-10.2); CHLORIDE 100 mmol/L (98-107); COSMO 286; CREATININE 0.6 mg/dL (0.5-0.9); ESTIMATED GFR > 60; GLUCOSE 241 mg/dL (70-104); POTASSIUM 4.1 mmol/L (3.5-5.1); SODIUM 139 mmol/L (136-145); TCO2 25 mmol/L (25-35)
[2018-08-17 07:14] LABS: BASO# 0.05 X1000 (0.0-0.2); BASO% 0.5 % (0.0-0.8); HEMATOCRIT 38.2 % (37.0-47.0); IMM GRAN# 0.71 X1000 (0.0-0.04); LYMPH# 1.54 X1000 (1.2-3.4); LYMPH% 15.2 % (20.5-51.1); MCHC 31.4 g/dL (33-37); MONO# 0.78 X1000 (0.11-0.59); MONO% 7.7 % (1.7-9.3); MPV 9.9 FL (7.4-10.4); NEUT# 7.08 X1000 (1.4-6.5); NEUT% 69.6 % (42.2-75.2); PLT 492 X1000 (130-400); RBC 4.29 XMIL (4.2-5.4); RDW 13.4 % (11.5-14.5); WBC 10.16 X1000 (4.8-10.8)
--- NOTE | 2018-08-17 07:16 | Diag Imaging Result Doc PS360 ---
EXAM: CHEST-PORTABLE 08/17/2018 HISTORY: dyspnea TECHNIQUE: AP portable at 0701 COMMENT: Compared to 08/15/2018 there is improvement in the parahilar opacities despite the fact that the inspiration is even less optimal. IMPRESSION: Improved pulmonary edema and/or pneumonia. Electronically signed by Juancho Maki 08/17/2018 7:14 AM
[2018-08-17 07:54] LABS: BANDS 1 % (0-1); LYMPHS 20 % (21-51); MONO 8 % (1-9); SEGS 69 % (42-75)
[2018-08-17 07:55] LABS: LARGE PLATELETS OCCASIONAL; POLYCHROM OCCASIONAL
[2018-08-17] MEDS: ZYPREXA PO SCH (08:39)
[2018-08-17] MEDS: NICODERM PATCH TD SCH (08:39)
[2018-08-17] MEDS: NEURONTIN PO SCH ×3 (08:40→17:04)
[2018-08-17] MEDS: HYDROCHLOROTHIAZIDE PO SCH (08:40)
[2018-08-17] MEDS: PRINIVIL PO SCH (08:40)
[2018-08-17] MEDS: DEPAKOTE PO SCH (08:40)
[2018-08-17] MEDS: CYMBALTA PO SCH (08:40)
[2018-08-17] MEDS: ROBITUSSIN-AC PO PRN (08:47)
[2018-08-17] MEDS: MUCOMYST 20% INH SCH (09:12)
[2018-08-17] MEDS: INCRUSE ELLIPTA INH SCH (09:12)
[2018-08-17 16:28] VITALS: BP 120/73
[2018-08-17] MEDS: ZITHROMAX PO SCH (17:04)
[2018-08-17] MEDS ORDERED: PROTONIX PO SCH (21:00)
--- NOTE | 2018-08-18 01:29 | DISCHARGE SUMMARY ---
ADMISSION DATE: 08/12/2018 DISCHARGE DATE: 08/17/2018 DISCHARGE ADDENDUM: On day of discharge, she is breathing comfortably. Her lungs actually sound fairly clear. She is afebrile. Saturations are 94% on 2 L but was 82% on room air. She has been here for about 5 days. In any case, her breathing is better. I think we are going to get her home today and see how she does. Her chest x-ray shows improvement in her airspace disease. Clinically, I feel like she has pneumonia, and she is persistently hypoxic because she has COPD. Her white count is 10,000 and I do feel stable for her to go home. Her bipolar is been stable. Would recommend followup chest x-ray in 4 to 6 weeks. That is with her PCP, and we will set her up with home oxygen prior to discharge. We will give her Omnicef and steroids to go home with and albuterol in addition to Atrovent. Discharge condition is stable. A 32-minute discharge. cc: MD Dr. Kiet Camarillo
--- NOTE | 2018-08-18 07:28 | DISCHARGE SUMMARY ---
ADMISSION DATE: 08/12/2018 DISCHARGE DATE: 08/17/2018 PRIMARY CARE PHYSICIAN: Dr. Santa. ADMISSION DIAGNOSES: 1. Left bronchial pneumonia. 2. Acute chronic obstructive pulmonary disease exacerbation. 3. Leukocytosis secondary to #1 and #2. 4. Fever. 5. Tobacco abuse. DISCHARGE DIAGNOSES: 1. Left bronchial pneumonia. 2. Acute chronic obstructive pulmonary disease exacerbation. 3. Leukocytosis secondary to #1 and #2, resolved. 4. Fever. 5. Tobacco abuse. 6. Bipolar, controlled. SUMMARY OF FINDINGS: This is a 48-year-old female who presented to the emergency room with her mom stating that she had a sore throat, diaphoresis, headache, shortness of breath for 2 days that progressively worsened. She also complained of headache, was given a digital nerve block in the emergency room that was improved. She had a temperature of 101.2 on arrival but had been covered up in 4 blankets, and we removed those blankets. Her white blood cell count was 14.05. Chest x-ray showed an ill-defined perihilar infiltrate on the left suspicious for bronchial pneumonia. He is a pack a day smoker for about 30 years. We discussed smoking cessation. We admitted her, placed her on O2 per protocol, IV antibiotics, DuoNebs, placed her on steroids and weaned those as she had improved. We did a room air saturation today that was 82% on room air, but she clinically has improved with her white blood cells being normal. We repeated her chest x-ray that showed improved pulmonary edema and/or pneumonia. Her lungs were clear to auscultation. It was felt that she could safely be discharged home today with home O2. DISCHARGE MEDICATIONS: Will included: 1. Azithromycin 250 mg p.o. q.24, #4 with no refills. 2. Divalproex sodium 1000 mg p.o. b.i.d. 3. Duloxetine 60 mg p.o. daily and 30 mg p.o. nightly. 4. Famotidine 40 mg p.o. nightly. 5. Gabapentin 300 mg p.o. t.i.d. 6. Robitussin AC 10 mL p.o. q.4 hours p.r.n., #150 mL with no refills. 7. Levothyroxine 50 mcg p.o. daily. 8. Lisinopril/hydrochlorothiazide 05/24.5 p.o. daily. 9. Melatonin 10 mg p.o. nightly. 10.Mirtazapine 15 mg p.o. nightly. 11.Olanzapine 20 mg p.o. nightly. 12.Maxalt 10 mg p.o. daily p.r.n. 13.Ropinirole 1 mg p.o. with supper. 14.Tizanidine 4 mg, 2-4 mg p.o. b.i.d. and nightly. 15.Detrol LA 4 mg p.o. nightly. 16.Incruse Ellipta 1 puff inhalation daily. 17.Biotin 1000 mcg p.o. daily. 18.Omnicef 300 mg p.o. b.i.d. #14 with no refills. 19.Chlorphentermine maleate 4 mg p.o. daily. 20.Divalproex sodium 250 mg p.o. nightly. 21.Etodolac 500 mg p.o. t.i.d. p.r.n. 22.Ferrous sulfate 27 mg p.o. daily. 23.Hydroxyzine 50 to 100 mg p.o. nightly. 24.Combivent Respimat inhaler 1 puff inhalation q.6 hours, #1 inhaler with 1 refill. 25.Fish oil 2500 mg soft gel p.o. daily. 26.Ondansetron 8 mg p.o. daily p.r.n. 27.Prednisone 10 mg p.o. daily, #30 with no refill. 28.PreserVision soft gel 1 p.o. daily. FOLLOWUP: She will need to follow up with her primary care physician in 1-2 weeks and she again will have home O2. Dictated by SHAHAB Loo for Juan Manuel Hutton MD cc: SHAHAB Loo MD Allison S. Reid
== END 2018-08-17 19:00 | disposition home or self-care (01) | DRG 871 ==
LOC: P.ED 08:08 → P.EDIPHOLD 17:26 → P.MEDSURG 18:28
PROVIDERS: ATTEND Internal Medicine
CPT/HCPCS: 36415; 71010; 71020; 71045; 71046; 71260; 80048; 80053; 81001; 82805; 82948; 83036; 83605; 83735; 85025; 87040; 87070; 87077; 87081; 87186; 87205; 87275; 87276; 87430; 87804; 89220; 94640; 94667; 94668; 94761; 94799; 96361; 96365; 96367; 96372; 96375; 99285; A9270; C9113; J0456; J0692; J0696; J0780; J1650; J1815; J1885; J1940; J2920; J2930; J3030; J7030; Q9967; S0020; S0164; XXXXX

== ENCOUNTER 2019-01-22 12:17 | Inpatient (IN) ==
[2019-01-22] MEDS ORDERED: SOLU-MEDROL IV ONE (12:36)
[2019-01-22] MEDS ORDERED: DUONEB (A & A) INH ONE (12:36)
[2019-01-22] MEDS ORDERED: PULMICORT INH ONE (12:36)
[2019-01-22] MEDS ORDERED: ALBUTEROL NEB INH ONE (12:36)
[2019-01-22 13:06] LABS: BE -3.5 mmoll (-3.0-3.0); BLOOD TYPE ARTERIAL; HCO3-(ACT) 21.8 mmoll (20.0-26.0); O2(CT) 12.4 mL/dL (15.0-23.0); PCO2(98.6) 27 mmHg (35-45); SAMPLE BLOOD; SAO2 79.2 % (95.0-100.0); THB 11.1 g/dL (11.5-17.4); pH(98.6) 7.46 (7.35-7.45)
[2019-01-22 13:13] LABS: BASO# 0.03 X1000 (0.0-0.2); BASO% 0.2 % (0.0-0.8); EOS# 0.04 X1000 (0.0-0.7); EOS% 0.2 % (0.0-10.0); HEMATOCRIT 32.1 % (37.0-47.0); IMM GRAN% 0.6 % (0.0-0.5); LYMPH% 15.9 % (20.5-51.1); MCH 27.7 PG (27-31); MCHC 34.3 g/dL (33-37); MCV 80.9 FL (81-99); MONO# 0.89 X1000 (0.11-0.59); MPV 9.5 FL (7.4-10.4); NEUT# 13.78 X1000 (1.4-6.5); NEUT% 78.1 % (42.2-75.2); PLT 635 X1000 (130-400); RBC 3.97 XMIL (4.2-5.4); RDW 14.6 % (11.5-14.5); WBC 17.64 X1000 (4.8-10.8)
[2019-01-22 13:24] LABS: PO2(98.6) 48 mmHg (60-100)
[2019-01-22 13:25] LABS: ALBUMIN 3.6 g/dL (3.5-5.0); CALCIUM 8.4 mg/dL (8.8-10.2); CREATININE 1.4 mg/dL (0.5-0.9); POTASSIUM 3.9 mmol/L (3.5-5.1); TOTAL BILIRUBIN 1.2 mg/dL (0.20-1.00); TOTAL PROTEIN 7.1 g/dL (6.3-8.3)
[2019-01-22 13:25] LABS: O2HB 79.2 % (95.0-99.0)
[2019-01-22 13:26] LABS: MODALITY CANNULA
--- NOTE | 2019-01-22 13:26 | Diag Imaging Result Doc PS360 ---
EXAM: CHEST-1 VIEW 01/22/2019 HISTORY: sob TECHNIQUE: Erect AP portable at 1326 COMMENT: The inspiration is suboptimal. There is atelectasis or pneumonia in the left lower lobe which was not present on 09/13/2018. IMPRESSION: Poor inspiration. Left lower lobe atelectasis versus pneumonia. Electronically signed by Juancho Maki 01/22/2019 1:24 PM
[2019-01-22 13:27] LABS: ALLEN TEST YES
[2019-01-22] MEDS ORDERED: ROCEPHIN 1 GM in NS 50 ML IV ONE (13:39)
[2019-01-22] MEDS ORDERED: ZITHROMAX PO ONE (13:40)
--- NOTE | 2019-01-22 13:42 | PROVIDER DOCUMENTATION ---
This chart was entered by Guerline Cleary Scribe, acting as scribe for Javier Ricketts MD. HPI-Respiratory General - General Chief Complaint: Shortness of Breath Stated Complaint: RESP DISTRESS Time Seen by Provider: 01/22/19 12:26 Source: patient, EMS (first response) Allergies/Adverse Reactions: Patient Allergies Allergy/AdvReac Type Severity Reaction Status Date / Time trazodone Allergy Severe RASH Verified 01/22/19 12:35 ziprasidone HCl * Allergy Severe HEADACHE Verified 01/22/19 12:35 [From Geodon] ziprasidone mesylate * Allergy Severe HEADACHE Verified 01/22/19 12:35 [From Geodon] diphenhydramine Allergy SWELLING Verified 01/22/19 12:35 [From Benadryl] hemorrhoid cream Allergy Unknown Uncoded 01/22/19 12:35 Home Medications: Home Medication List Medication Instructions Recorded Confirmed Last Taken Type Gabapentin [Neurontin] 300 mg PO TID #90 capsule 11/25/17 08/12/18 05/19/18 18:00 Rx Famotidine 40 mg PO HS 01/05/18 08/12/18 05/19/18 18:00 History Lisinopril/Hydrochlorothiazide 10 - 12.5 each PO DAILY 01/05/18 08/12/18 05/19/18 05:00 History [Lisinopril-Hctz 10-12.5 mg Tab] Ondansetron HCl 8 mg PO DAILY PRN PRN 01/05/18 08/14/18 05/18/18 History Ropinirole HCl 1 mg PO .WITH SUPPER 01/05/18 08/14/18 05/19/18 18:00 History Rizatriptan [Maxalt] 10 mg PO DAILY PRN PRN #10 tab 01/08/18 08/14/18 05/19/18 Rx Biotin 1,000 mcg PO DAILY 05/20/18 05/20/18 05/19/18 05:00 History Chlorpheniramine Maleate 4 mg PO DAILY 05/20/18 05/20/18 05/19/18 05:00 History Divalproex Sodium 1,000 mg PO BID 05/20/18 08/14/18 05/19/18 18:00 History Duloxetine HCl [Cymbalta] 60 mg PO DAILY 05/20/18 08/12/18 05/19/18 05:00 History Etodolac 500 mg PO TID PRN 05/20/18 08/14/18 05/19/18 18:00 History Ferrous Sulfate [Iron] 27 mg PO DAILY 05/20/18 05/20/18 05/19/18 18:00 History Hydroxyzine HCl 50 - 100 mg PO HS 05/20/18 08/14/18 05/19/18 18:00 History Levothyroxine Sodium [Synthroid] 50 mcg PO DAILY 05/20/18 08/12/18 05/19/18 05:00 History Melatonin 10 mg PO HS 05/20/18 08/12/18 05/19/18 18:00 History Mirtazapine [Remeron] 15 mg PO HS 05/20/18 08/12/18 05/19/18 18:00 History Olanzapine 20 mg PO HS 05/20/18 08/14/18 05/19/18 18:00 History Tizanidine HCl 2 - 4 mg PO .BID AND HS 05/20/18 08/14/18 05/19/18 18:00 History Vit A/Vit C/Vit E/Zinc/Copper 1 each PO DAILY 05/20/18 05/20/18 05/19/18 05:00 History [Preservision Areds Softgel] [place]-3S/Dha/Epa/Fish Oil [Fish 1 each PO DAILY 08/12/18 08/12/18 Unknown History Oil 1,200 mg Softgel] Divalproex Sodium 250 mg PO HS 08/14/18 08/14/18 Unknown History Duloxetine HCl [Cymbalta] 30 mg PO HS 08/14/18 08/14/18 Unknown History Gabapentin 300 mg PO TID 08/14/18 08/14/18 Unknown History Tolterodine L.a. [Detrol LA] 4 mg PO HS 08/14/18 08/14/18 Unknown History Umeclidinium [place] [Incruse 1 puff INH DAILY 08/14/18 08/14/18 Unknown History Ellipta] Azithromycin [Zithromax] 250 mg PO Q24H #4 tab 08/17/18 Unknown Rx CefDINIR [Omnicef] 300 mg PO BID #14 cap 01/05/19 Unknown Rx Guaifenesin/Codeine [Robitussin-AC] 10 ml PO Q4H PRN PRN #150 udc 08/17/18 Unknown Rx Ipratropium/Albuterol INH 1 puff INH RTQ6H #1 inhaler 08/17/18 Unknown Rx [Combivent Respimat Inhaler] Prednisone 10 mg PO DAILY #30 tab 08/17/18 Unknown Rx - History of Present Illness-Resp Nature of Presenting Problem: 48 yowf presents to the ed via ems with c/o sob for 1 week. pt has hx of COPD and a smoker. per ems pt had inital O2 sat 86% and was on 4LPM. pt on exam is anxious, dyspnea and tachypnea Quality of Pain: reports: fullness Severity in ED: reports: moderate Onset/Duration: reports: 1 week ago Timing: reports: still present, getting worse Context: reports: other (COPD) Cough Quality/Degree: reports: moderate, dry cough Episode Frequency: chronic episodes Current Respiratory Medication Therapy: Initiated see nurses note Modifying Factors: improves with: oxygen, sitting upright. worse with: exertion, coughing Associated Symptoms: reports: cough, dizziness, heart racing, hurts to breathe, hyperventilating, shortness of breath. denies: fever/chills Similar Symptoms Previously?: Yes (copd) Recently seen or treated by another doctor?: No (canceled ems call 3 days prior per ems) Review of Systems - Adult - REVIEW OF SYSTEMS - ADULT ROS:: limited per condition Constitutional: denies: chills, fever Eyes: reports: no symptoms reported Ears, Nose, Mouth & Throat: reports: no symptoms reported Cardiovascular: denies: chest pain, palpitations, syncope Respiratory: reports: no symptoms reported, chronic cough, dyspnea on exertion, shortness of breath, wheezing (LLL) Gastrointestinal: denies: abdominal pain, diarrhea, nausea, vomiting Genitourinary: reports: no symptoms reported Musculoskeletal: denies: back pain, neck pain Integumentary: reports: no symptoms reported Neurological: reports: see HPI, dizziness/vertigo. denies: headache/migraines, loss of balance, numbness, paresthesia, seizure, slurred speech, syncope, tremors Psychiatric: reports: no symptoms reported Endocrine: reports: no symptoms reported Hematologic/Lymphatic: reports: no symptoms reported Allergic/Immunologic: reports: no symptoms reported All Other Systems: Reviewed and Negative Past History - Adult - PAST MEDICAL HISTORY-ADULT Review of Records: reports: Nursing Assessment Review, Medications Reviewed Major Childhood Illnesses: reports: denies history Cardiovascular: reports: HTN, hyperlipidemia Respiratory: reports: asthma, COPD, pneumonia, sleep apnea Gastrointestinal: reports: GERD Obstetrical/Gynecological: reports: denies history Genitourinary: reports: denies history Musculoskeletal: reports: chronic pain, intervertebral disc disease Hand Dominance: Right Handed Neurological: reports: CVA, Parkinson's, Seizures/Epilepsy Psychiatric: reports: bipolar, depression, psychiatric problems, schizophrenia Endocrine/Immune: reports: Diabetes Diabetes Type: Type 2 Diabetes controlled by:: Diet Other Conditions: reports: denies history - PRIOR SURGERIES/PROCEDURES Surgical/Procedure History: reports: hysterectomy, BTL, tonsillectomy, hernia repair, orthopedic (extremity) (knee), gastric bypass, other (T&A) - IMMUNIZATION STATUS Childhood Immunizations: See Nurse Assessment Flu Vaccine: See Nurse Assessment - FAMILY HISTORY Family History: reviewed, not pertinent - SOCIAL HISTORY Smoking: cigarettes, greater than 1 pack/day Provider spent 3-5 mins advising pt. on dangers of tobacco.: Discussed manners to quit use, and f/u contacts for add'l counseling. Substance Use: denies Alcohol Use Frequency: never Living Situation: family Physical Exam-General - PHYSICAL EXAM-ADULT Initial Vital Signs Reviewed: Yes - CONSTITUTIONAL General Appearance: alert, moderate distress, obese, anxious - EYES Eyes: PERRL/EOMI, pink conjunctivae - HEAD, EARS, NOSE, MOUTH & THROAT HENMT: normal ENT inspection (dry oral), TMs normal, other (no teeth). negative: moist mucous membranes - NECK Neck: non-tender, full range of motion, normal inspection - RESPIRATORY Respiratory: chest non-tender, respiratory distress (moderate), wheezing (LLL), increased rate (50), other (02 @ 88% on 4 LPM) - CARDIOVASCULAR Cardiovascular: normal peripheral pulses, tachycardia (104) - GASTROINTESTINAL (ABDOMEN) Abdominal Exam: normal bowel sounds, non tender, soft - LYMPHATIC Lymphatic: no adenopathy - MUSCULOSKELETAL Back Exam: normal inspection, no CVA tenderness, no vertebral tenderness Extremity: normal range of motion, non-tender, normal gait, normal inspection, no pedal edema, no calf tenderness, normal capillary refill, pelvis stable - SKIN Integumentary: normal color, normal turgor, warm/dry - NEUROLOGIC Neurologic: grossly normal - PSYCHIATRIC Psych/Mental Status: oriented x 3, anxious Progress - PLAN OF CARE/RESULTS Progress/Plan/Lab Results: Vital Signs - 8 hr 01/22/19 12:26 01/22/19 12:52 01/22/19 13:25 Temperature 98.1 F Pulse Rate 104 H 105 H Respiratory Rate 50 H 48 H Blood Pressure 102/80 O2 Sat by Pulse Oximetry 88 L 91 L 95 Laboratory Results - last 24 hr 01/22/19 01/22/19 01/22/19 12:49 13:00 13:00 WBC 17.64 H RBC 3.97 L Hgb 11.0 L Hct 32.1 L MCV 80.9 L MCH 27.7 MCHC 34.3 RDW Std Deviation 14.6 H Plt Count 635 H MPV 9.5 Immature Gran % (Auto) 0.6 H Neut % (Auto) 78.1 H Lymph % (Auto) 15.9 L Rich % (Auto) 5.0 Eos % (Auto) 0.2 Baso % (Auto) 0.2 Immature Gran # (Auto) 0.10 H Neut # (Auto) 13.78 H Lymph # (Auto) 2.80 Rich # (Auto) 0.89 H Eos # (Auto) 0.04 Baso # (Auto) 0.03 Specimen Type ARTERIAL Sample Site L BRACHIAL pH 7.46 H pCO2 27 L pO2 48 L* HCO3 21.8 Base Excess -3.5 L Oxyhemoglobin 79.2 L* ABG O2 Sat (Calculated) 12.4 L ABG O2 Saturation 79.2 L ABG Carboxyhemoglobin 0.00 L ABG Methemoglobin 0.0 Leonid Test YES A-a O2 Difference 175.0 Total Hemoglobin 11.1 L Lactate 3.60 H Liter Flow 4.0 Blood Gas Modality CANNULA FiO2 % 36.0 Sodium 132 L Potassium 3.9 Chloride 92 L Carbon Dioxide 20 L Anion Gap 21 BUN 19 Creatinine 1.4 H Estimated GFR/1.73 m2 40 BUN/Creatinine Ratio 14 Glucose 159 H Calculated Osmolality 270 Calcium 8.4 L Total Bilirubin 1.20 H AST 302 H ALT 219 H Alkaline Phosphatase 172 H Total Protein 7.1 Albumin 3.6 Globulin 4.0 Albumin/Globulin Ratio 1.0 Orders Category Date Time Status CHEST-1 VIEW [RAD] Stat Exams 01/22/19 12:38 Completed ABG [RESP] Routine Lab 01/22/19 12:49 Completed CBC WITH DIFF [HEME] Stat Lab 01/22/19 13:00 Completed COMPREHENSIVE METABOLIC PANEL [CHEM] Stat Lab 01/22/19 13:00 Completed Albuterol 2.5MG/Ipratrop 0.5MG [Duoneb (A & A)] Med 01/22/19 12:36 Discontinu ed 3 ml INH NOW ONE Albuterol [Albuterol Neb] Med 01/22/19 12:36 Discontinued 5 mg INH NOW ONE Azithromycin [Zithromax] Med 01/22/19 13:40 Once 500 mg PO NOW ONE Budesonide [Pulmicort] Med 01/22/19 12:36 Discontinued 0.5 mg INH NOW ONE Methylprednisolone Sod Succ [Solu-Medrol] Med 01/22/19 12:36 Discontinued 125 mg IV NOW ONE Rocephin 1 gm/Ns IV Now Med 01/22/19 13:39 Ordered CefTRIAXONE [Rocephin] 1 gm 0.9% Sodium Chloride Inj [Ns] 50 ml IV NOW Aerosol Treatments Routine Oth 01/22/19 12:37 Active Aerosol Treatments Stat Oth 01/22/19 12:37 Active Oxygen Device Stat Oth 01/22/19 12:38 Active Result Diagrams: 01/22/19 13:00 01/22/19 13:00 - REASSESSMENT Reassessment #1 Time Reassessed: 13:27 (mild improvement with breathing tx but still breathing fast. dr ricketts is at bedside) Status: improving - EKG 1 Time of EKG reading by physician:: 12:27 EKG Read and Signed by:: Javier Ricketts EKG Interpretation (*Must complete 3 of following elements*): Abnormal Rate: 107 Rhythm: sinus tachycardia [place]: normal QRS: RBB (incomplete) NM Interval: normal ST Wave: normal Comments: T wave abnormality, consider anterolateral ischemia - XRAY 1 XRAY: Bilateral XRAY Study: Chest Impression: See EMR Report (EXAM: CHEST-1 VIEW 01/22/2019 HISTORY: sob TECHNIQUE: Erect AP portable at 1326 COMMENT: The inspiration is suboptimal. There is atelectasis or pneumonia in the left lower lobe which was not present on 09/13/2018. IMPRESSION: Poor inspiration. Left lower lobe atelectasis versus pneumonia. Electronically signed by Juancho Maki 01/22/2019 1:24 PM 01/22/19 1324 Interpreting Physician: Juancho Maki MD Dictated Date/Time: 01/22/19 1324 cc: Javier Ricketts MD; None,PCP) - CONSULTS/PCP/HOSPITALIST Notification #1 *Consult/PCP/Hospitalist*: hospitalist dr plascencia Consult Disposition: Admit Departure - Departure Date of Disposition Decision: 01/22/19 Time of Disposition Decision: 13:41 DIAGNOSIS: Hypoxia Left lower lobe pneumonia Qualifiers: Pneumonia type: due to unspecified organism Qualified Code(s): J18.1 - Lobar pneumonia, unspecified organism Disposition: ADMITTED INPATIENT 09 Certified Medical Emergency: Emergent Condition: Fair Referrals and Follow-Ups: None,PCP [Primary Care Provider] - - Critical Care Note This patient required my direct & personal management of CC.: Yes Total Time (mins): 36 Critical Care Statement: This patient required my direct personal management to treat or rule out processes, the absence of which, could potentiallly result in sudden, clinically significant life or limb threatening deterioration. Attestation - Physician/ CARLOS Attestation Patient care was provided by Advanced Practice Provider:: No The physician spent face to face time with patient:: Yes Advanced Practice Provider documentation review:: Supervising physician onsite and consulted in the evaluation and care of this patient. The physician did have a face to face encounter with the patient. This chart was documented by the indicated scribe, (Guerline Cleary Scribe) and accurately reflects the services I performed and decisions made by me, Javier Ricketts MD, as attested by the provider's signature.
[2019-01-22 14:02] LABS: PROTIME 15.8 Seconds (11.0-16.0)
[2019-01-22 14:03] LABS: INR 1.2
[2019-01-22 14:04] LABS: PTT 42.7 Seconds (22.3-41.8)
[2019-01-22] MEDS ORDERED: NS 1,000 ML IV ONE (14:36)
[2019-01-22 15:06] LABS: CK INDEX 1.3 (0.0-2.5); CK-MB 4.75 ng/mL (0.0-5.0)
[2019-01-22] MEDS ORDERED: TYLENOL PO PRN (15:14)
[2019-01-22] MEDS ORDERED: VANCOMYCIN IV PER PHARMACY MISC SCH (15:14)
[2019-01-22] MEDS ORDERED: DUONEB (A & A) INH PRN (15:14)
[2019-01-22] MEDS ORDERED: ATIVAN IV PRN (15:14)
[2019-01-22 15:48] LABS: BILIRUBIN URINE 3+ (NEGATIVE); BLOOD URINE NEGATIVE (NEGATIVE); CLARITY CLEAR (CLEAR); COLOR YELLOW; GLUCOSE URINE NEGATIVE (NEGATIVE); KETONE URINE TRACE mg/dL (NEGATIVE); LEUKOCYTES URINE TRACE (NEGATIVE); NITRITE URINE NEGATIVE (NEGATIVE); PROTEIN URINE TRACE mg/dL (NEGATIVE); SP GRAVITY URINE 1.015; UROBILINOGEN URINE 4 mg/dL
[2019-01-22] MEDS: DUONEB (A & A) INH SCH ×3 (15:49→23:51)
--- NOTE | 2019-01-22 15:54 | HISTORY AND PHYSICAL ---
PRIMARY CARE PROVIDER: Dr. Nicolasa Goff. CHIEF COMPLAINT: Difficulty breathing. HISTORY OF PRESENT ILLNESS: Ms. Avery is a 48-year-old female who carries a past medical history of hypertension, hyperlipidemia, COPD, asthma, CVA, seizures, bipolar, schizophrenia, and type 2 diabetes, who reported to the ED via EMS for shortness of breath x1 week. Her initial O2 saturation was 86% on 4 L nasal cannula. The patient appears to be hyperventilating and very anxious even after treatment. Workup in the ED revealed a white count of 17. She is blowing off her CO2 on her ABG, mild hyponatremia, elevated creatinine at 1.4, as well as elevated liver function tests. Her lactate was 3.6 on her ABG. She was treated in the ED with azithromycin and Rocephin, breathing treatments. When I tried to assess the patient, she was able to tell me that she has been having difficulty breathing for over 1 week. However, any questioning after that, the patient would either breathe harder or start coughing. I would ask her to breathe in through her nose and blow it out her mouth. She was able to come back down to a normal breathing. However, when I began questioning her again, she would pick back up on her respirations as well as start coughing again. The patient was really unable to answer any further questions, so we will admit her to the ICU. She has been breathing 50 times a minute. We will need to recheck her ABG. Will give her something for her anxiety and place her on broader spectrum antibiotics and watch her closely overnight in the ICU. PAST MEDICAL HISTORY: 1. COPD. 2. Hypertension. 3. Hyperlipidemia. 4. CVA. 5. Seizures. 6. Bipolar, schizophrenia. 7. Type 2 diabetes. PAST SURGICAL HISTORY: 1. Hysterectomy. 2. Bilateral tubal ligation. 3. Tonsillectomy. 4. Gastric bypass. 5. Knee replacement. FAMILY HISTORY: Unable to obtain. ALLERGIES: Trazodone, ziprasidone, Benadryl, hemorrhoid cream. SOCIAL HISTORY: She lives alone, cared for by her mother who lives next door. She does continue to smoke a pack cigarettes per day and has done so for 30+ years. HOME MEDICATIONS: Have not been verified. REVIEW OF SYSTEMS: Hard to obtain secondary to the patient coughing and hyperventilation. PHYSICAL EXAMINATION: VITAL SIGNS: Initial temperature was 98 degrees, heart rate 104, respiratory rate 50, blood pressure was 102/80, O2 is 88% on 4 L nasal cannula. She is now 95% on a non- rebreather. GENERAL: Ms. Avery appears to be an anxious, 48-year-old female who is lying on the stretcher, somewhat uncooperative with examination. She was tachycardic, tachypneic. However, she is able to slow down her breathing with instruction and when you ask her questions again, she will start to cough and picks back up with the heavy breathing. HEENT: Atraumatic, normocephalic. PERRL. NECK: Supple. Trachea midline. CARDIOVASCULAR: S1, S2 appreciated. No murmurs, gallops, rubs noted. RESPIRATORY: Lung sounds relatively clear throughout all lung soriano, maybe some mild expiratory wheezes. GI: Obese, soft, nontender, nondistended. Positive bowel sounds 4 quadrants. EXTREMITIES: Negative for edema. Bilateral pedal pulses were bounding. No signs of clubbing or cyanosis. NEUROLOGIC: The patient is awake, alert. She is able to follow commands. She did not really answer all the questions. She would start coughing aggressively as well as breathing hard any time I would ask her question, but she was able to slow her breathing when given instruction. DIAGNOSTIC DATA: Chest x-ray: Poor inspiration, left lower lobe atelectasis versus pneumonia. LABORATORY DATA: White count 17, hemoglobin and hematocrit 11 and 32, platelet count is 635,000. ABG, pH 7.46, pCO2 27, PO2 48, bicarb 21, base excess -3.5, oxyhemoglobin was 79.2, O2 saturation was 79.2. Her lactate was 3.6. Sodium 132, potassium 3.9, carbon dioxide 20, BUN 19, creatinine 1.4, blood glucose is 159. T bilirubin 1.20, AST 302, ALT 219, alkaline phosphatase 172. CK is 358. CK-I pending. CK-MB pending. Troponin 0.031. ASSESSMENT AND PLAN: 1. Sepsis secondary to left lower lobe pneumonia. We will do the sepsis protocol, initiate IV bolus, continue with IV fluids, broad-spectrum antibiotics. 2. Left lower lobe pneumonia. Continue on antibiotics bronchodilators, supplemental O2. 3. Mild chronic obstructive pulmonary disease exacerbation. We will continue with antibiotics, IV steroids, aggressive pulmonary toilet, supplemental O2. 4. Leukocytosis, secondary to #2. 5. Hypoxia upon arrival. We will continue with supplemental O2. 6. Hyponatremia. Continue with IV fluids. 7. Acute kidney injury. Continue with IV hydration. 8. Transaminitis. We will check hepatitis profile and a right upper quadrant ultrasound. 9. Mildly elevated troponin. We will continue to trend. The patient did not complain of any chest pain; however, she was not really compliant during the interview. 10. Diabetes mellitus. We will continue patient on pattern blood sugars and sliding scale insulin. When her breathing is more under control, we can start her on a diabetic diet. 11. Bipolar, schizophrenia. Continue home medications when reconciled. 12. Hypertension. 13. Seizures. Will continue home medications when reconciled. She has Ativan ordered p.r.n. 14. Anxiety. We will continue with p.r.n. Ativan. 15. Cerebrovascular accident history. Aware. 16. Further recommendations to follow physician evaluation, laboratory and diagnostic data. Dictated by SHAHAB Deng for Vernon Harman MD cc: MD Nicolasa Hollins [facility]ITALDarell
--- NOTE | 2019-01-22 16:09 | Diag Imaging Result Doc PS360 ---
EXAM: CHEST-PORTABLE HISTORY: Pneumonia TECHNIQUE: Single view of the chest was performed portably. COMPARISON: 01/22/2019 FINDINGS: There is cardiomegaly. The pulmonary vasculature is not congested. There are probable infiltrates within the right upper lobe, left upper lobe, and left lower lobe. Small left effusion. IMPRESSION: Multifocal infiltrates. Small left effusion. Electronically signed by Rosy Talbot 01/22/2019 4:07 PM
[2019-01-22 16:18] LABS: URINE SOURCE CATH
[2019-01-22] MEDS: HUMALOG (PARKWAY) SUBQ SCH ×2 (16:18→21:06)
[2019-01-22] MEDS: ZOSYN 2.25 GM in NS 50 ML IV SCH ×2 (16:18→21:07)
[2019-01-22] MEDS: NS 1,000 ML IV SCH (16:18)
[2019-01-22 16:19] LABS: URINE RBC <10 /HPF (<10); URINE WBC <10 /HPF (<10)
[2019-01-22 16:20] LABS: URINE BACTERIA 1+ /HFP; URINE CAST NONE SEEN /LPF; URINE CRYSTAL NONE SEEN /HPF; URINE EPITHELIAL CELLS >10 /HPF (<10); URINE YEAST NONE SEEN /HPF
[2019-01-22] MEDS ORDERED: VANCOMYCIN 2,500 MG in NS 500 ML IV ONE (17:00)
[2019-01-22] MEDS ORDERED: ATIVAN IV ONE (17:26)
[2019-01-22] MEDS: NEURONTIN PO SCH (17:42)
--- NOTE | 2019-01-22 17:51 | EKG Report ---
Test Performed on : 01/22/2019 12:25:16 PM Test Reason : SOB Blood Pressure : / mmHG Vent. Rate : 107 BPM Atrial Rate : 107 BPM P-R Int : 126 ms QRS Dur : 092 ms QT Int : 372 ms P-R-T Axes : 054 041 -33 degrees QTc Int : 496 ms Sinus tachycardia. Incomplete right bundle branch block T wave abnormality, consider anterolateral ischemia Abnormal ECG When compared with ECG of 10-FEB-2018 19:45, T wave inversion now evident in Inferior leads T wave inversion now evident in Anterolateral leads Unconfirmed Result
[2019-01-22 18:51] LABS: UR AMPHETAMINES QUAL NONE DETECTED (NONE DETECT); UR BARBITUATES QUAL NONE DETECTED (NONE DETECT); UR BENZODIAZEPIN QUAL NONE DETECTED (NONE DETECT); UR CANNABINOIDS QUAL NONE DETECTED (NONE DETECT); UR COCAINE QUAL NONE DETECTED (NONE DETECT); UR METHADONE QUAL NONE DETECTED (NONE DETECT); UR METHAMPHETAMINE QUAL NONE DETECTED (NONE DETECT); UR OPIATES QUAL NONE DETECTED (NONE DETECT); UR OXYCODONE QUAL NONE DETECTED (NONE DETECT); UR PCP QUAL NONE DETECTED (NONE DETECT); UR PROPOXYPHENE QUAL NONE DETECTED (NONE DETECT); UR TCA QUAL PRESUMPTIVE POSITIVE (NONE DETECT)
[2019-01-22] MEDS: HALDOL IV PRN (19:27)
--- NOTE | 2019-01-22 20:05 | HISTORY AND PHYSICAL ---
ADDENDUM: Patient seen and examined by myself. Full note dictated and discussed with nurse practitioner. Patient presented to the hospital coughing. Has left lower lobe pneumonia. Certainly may have sepsis. Has chronic COPD, bipolar, schizophrenia. Has elevated liver functions of undetermined origin currently. We will check an ultrasound. Patient currently is somewhat delirious. Certainly resembles someone who may have taken an overdose of something. We will continue to follow, place her in the ICU, antibiotics, and will follow. cc: Vernon Harman MD
[2019-01-22] MEDS: PULMICORT INH SCH (20:17)
[2019-01-22] MEDS: SOLU-MEDROL IV SCH (21:07)
[2019-01-22] MEDS: ATIVAN IV PRN (21:48)
[2019-01-22 22:25] LABS: CK INDEX 1.2 (0.0-2.5); CK-MB 4.16 ng/mL (0.0-5.0)
[2019-01-23] MEDS: HALDOL IV PRN ×4 (00:56→20:00)
[2019-01-23] MEDS: NS 1,000 ML IV SCH ×3 (00:57→18:18)
[2019-01-23] MEDS: ATIVAN IV PRN ×3 (02:09→20:01)
[2019-01-23] MEDS: DUONEB (A & A) INH SCH ×6 (04:10→23:15)
[2019-01-23] MEDS: SOLU-MEDROL IV SCH ×3 (04:11→22:01)
[2019-01-23] MEDS: ZOSYN 2.25 GM in NS 50 ML IV SCH ×4 (04:12→23:52)
[2019-01-23 06:18] LABS: BE 0.2 mmoll (-3.0-3.0); BLOOD TYPE ARTERIAL; METHB 1.3 % (0.0-1.5); O2(CT) 11.9 mL/dL (15.0-23.0); O2HB 92.3 % (95.0-99.0); PCO2(98.6) 38 mmHg (35-45); PO2(98.6) 78 mmHg (60-100); SAMPLE BLOOD; SAO2 96.9 % (95.0-100.0); THB 9.1 g/dL (11.5-17.4); pH(98.6) 7.42 (7.35-7.45)
[2019-01-23 06:21] LABS: ALLEN TEST YES; MODALITY PRB
[2019-01-23 06:30] LABS: HEMATOCRIT 26.8 % (37.0-47.0); IMM GRAN# 0.04 X1000 (0.0-0.04); IMM GRAN% 0.3 % (0.0-0.5); LYMPH# 0.98 X1000 (1.2-3.4); LYMPH% 6.5 % (20.5-51.1); MCH 27.4 PG (27-31); MCHC 33.6 g/dL (33-37); MCV 81.7 FL (81-99); MONO# 0.63 X1000 (0.11-0.59); MONO% 4.2 % (1.7-9.3); MPV 9.4 FL (7.4-10.4); NEUT# 13.35 X1000 (1.4-6.5); PLT 489 X1000 (130-400); RBC 3.28 XMIL (4.2-5.4); RDW 14.7 % (11.5-14.5)
[2019-01-23 06:42] LABS: HEMOGLOBIN A1C 5.9 % (4.8-6.0)
[2019-01-23 07:04] LABS: AGAP 13; BUN 11 mg/dL (8-22); CHLORIDE 104 mmol/L (98-107); COSMO 278; CREATININE 0.6 mg/dL (0.5-0.9); GLUCOSE 179 mg/dL (70-104); POTASSIUM 4.7 mmol/L (3.5-5.1); SODIUM 137 mmol/L (136-145); TCO2 20 mmol/L (25-35)
[2019-01-23 07:05] LABS: ALBUMIN 2.9 g/dL (3.5-5.0); ALKALINE PHOSPHATASE 132 U/L (32-104); CALCIUM 7.7 mg/dL (8.8-10.2); CK PROFILE 244 U/L (24-173); ESTIMATED GFR > 60; GOT 131 U/L (10-30); GPT 170 U/L (10-36); TOTAL PROTEIN 5.2 g/dL (6.3-8.3)
[2019-01-23] MEDS: SYNTHROID PO SCH (07:17)
[2019-01-23] MEDS: HUMALOG (PARKWAY) SUBQ SCH ×4 (07:17→20:58)
[2019-01-23 07:33] LABS: CK INDEX 1.3 (0.0-2.5); CK-MB 3.06 ng/mL (0.0-5.0)
[2019-01-23 08:06] LABS: ANISOCYTOSIS 1+; BANDS 4 % (0-1); LYMPHS 8 % (21-51); MONO 3 % (1-9); SEGS 85 % (42-75)
--- NOTE | 2019-01-23 08:23 | EKG Report ---
Test Performed on : 01/23/2019 08:00:32 AM Test Reason : Rhythm change Blood Pressure : / mmHG Vent. Rate : 143 BPM Atrial Rate : 082 BPM P-R Int : 000 ms QRS Dur : 088 ms QT Int : 332 ms P-R-T Axes : 000 037 -21 degrees QTc Int : 512 ms Atrial fibrillation. with rapid ventricular response. Low voltage QRS T wave abnormality, consider anterior ischemia Abnormal ECG When compared with ECG of 22-JAN-2019 12:25, (Unconfirmed) Atrial fibrillation. has replaced Sinus rhythm. Confirmed by Danny Lane MD ([id number]) on 01/26/2019 10:20:54 AM
--- NOTE | 2019-01-23 08:33 | Diag Imaging Result Doc PS360 ---
EXAM: US GB < RUQ (LIMITED) HISTORY: elevated LFTs TECHNIQUE: Right upper quadrant ultrasound COMPARISON: 09/13/2018 FINDINGS: Normal inferior vena cava. No ascites in the right upper quadrant. The common bile duct measures 3 mm. The gallbladder is not identified. No hydronephrosis to the right kidney. The pancreas and aorta are obscured. No focal hepatic abnormality although there is fatty infiltration. IMPRESSION: Fatty infiltration of the liver. Electronically signed by Kevon Lafleur 01/23/2019 8:31 AM
[2019-01-23] MEDS: NEURONTIN PO SCH ×3 (09:01→18:19)
[2019-01-23] MEDS: PEPCID PO SCH (09:01)
[2019-01-23] MEDS: VANCOMYCIN 1,800 MG in NS 250 ML IV SCH ×2 (09:37→22:01)
[2019-01-23] MEDS: MORPHINE IV PRN ×4 (09:38→23:51)
[2019-01-23] MEDS: MUCINEX PO SCH ×2 (09:44→20:58)
[2019-01-23] MEDS: PULMICORT INH SCH ×2 (11:50→19:10)
--- NOTE | 2019-01-23 14:45 | PROGRESS NOTE ---
DATE: 01/23/2019 SUBJECTIVE: Patient is calm this morning. However, she is still sedated. She does awaken, but does not answer questions appropriately. PHYSICAL EXAMINATION: Vital Signs: Reviewed. Temperature 97 degrees, pulse 86, respiratory 24 to 30, blood pressure stable, and oxygen 95% on non-rebreather. HEENT: Normocephalic. Neck: Supple. Cardiovascular: Regular rate. Lungs: Chest decreased but equal breath sounds. No current crackles. No wheezing. Abdomen: Soft. Obese. Extremities: Moves all extremities. Neurologic: No focal changes on her neurologic exam grossly although patient is sedated. She will awaken and is oriented at times, but does not follow commands or answer questions. ASSESSMENT: 1. Acute hepatitis of undetermined origin, improving, certainly suggestive that patient may have taken some substance. 2. Sepsis improved. 3. Left lower lobe pneumonia. 4. Chronic obstructive pulmonary disease with exacerbation. 5. Leukocytosis improved. 6. Hyponatremia improved. 7. Diabetes. 8. Bipolar schizophrenia. 9. Hypoxic respiratory failure. PLAN: We will continue patient in the hospital. Continue oxygen and supportive care. We will continue breathing treatments and antibiotics. Expect that she may require BiPAP. We will continue to follow. cc: Vernon Harman MD
[2019-01-23] MEDS ORDERED: VANCOMYCIN 1,800 MG in NS 250 ML IV SCH (17:00)
--- NOTE | 2019-01-23 22:38 | ECHO REPORT ---
ORDER DATE: 01/23/2019 MEASUREMENTS: Septal thickness 0.9. Left ventricular internal diameter in diastole 4.9. Left ventricular posterior wall thickness 0.9. Left ventricular internal diameter in systole 2.9. Aortic root 3.1. Left atrium 3.4. SUMMARY: 1. Adequate quality study. 2. The aortic valve is trileaflet and opens normally on 2-dimensional images. Peak gradient across the aortic valve is less than 10 mmHg. Mitral, tricuspid and pulmonic valves are without evidence of structural abnormality. There is moderate tricuspid regurgitation. Estimated systolic PA pressure by Doppler is approximately 70 mmHg, suggesting moderate to severe pulmonary hypertension. The aortic root is normal size. 3. Normal left ventricular dimensions demonstrated. Estimated left ventricular ejection fraction appears to be at least 65%. There is some mild septal flattening during diastole and systole, suggesting right ventricular pressure/volume overload. The left atrium is normal in size. The right ventricle and right atrium appear mildly to moderately enlarged, with reduced right ventricular systolic function. 4. No pericardial effusion. 5. Appearance of the inferior vena cava suggests normal central venous pressure. CONCLUSIONS: 1. Moderate tricuspid regurgitation with moderate to severe pulmonary hypertension by Doppler. 2. Estimated left ventricular ejection fraction approximately 65%. 3. Mild to moderate right-sided chamber enlargement, with reduced right ventricular systolic function and associated abnormal septal motion, suggesting right ventricular pressure volume overload. cc: Blaze Sykes MD
[2019-01-24] MEDS: HALDOL IV PRN ×4 (01:45→20:17)
[2019-01-24] MEDS: MORPHINE IV PRN ×3 (03:44→19:39)
[2019-01-24] MEDS: DUONEB (A & A) INH SCH ×6 (03:49→22:29)
[2019-01-24] MEDS: NS 1,000 ML IV SCH ×4 (04:27→23:48)
[2019-01-24] MEDS: SOLU-MEDROL IV SCH ×3 (04:27→20:27)
[2019-01-24] MEDS: ZOSYN 2.25 GM in NS 50 ML IV SCH ×4 (05:26→23:30)
[2019-01-24] MEDS: SYNTHROID PO SCH (06:06)
[2019-01-24] MEDS: HUMALOG (PARKWAY) SUBQ SCH ×4 (06:06→20:20)
[2019-01-24 06:29] LABS: HEMOGLOBIN 9.2 g/dL (12.0-16.0); MCH 26.9 PG (27-31); MCHC 31.7 g/dL (33-37); MCV 84.8 FL (81-99); MPV 9.5 FL (7.4-10.4); RBC 3.42 XMIL (4.2-5.4); RDW 15.2 % (11.5-14.5); WBC 18.5 X1000 (4.8-10.8)
[2019-01-24 07:06] LABS: AGAP 13; ALKALINE PHOSPHATASE 134 U/L (32-104); BUN 15 mg/dL (8-22); CALCIUM 8.2 mg/dL (8.8-10.2); CHLORIDE 105 mmol/L (98-107); COSMO 281; CREATININE 0.6 mg/dL (0.5-0.9); ESTIMATED GFR > 60; GLUCOSE 148 mg/dL (70-104); GOT 55 U/L (10-30); GPT 131 U/L (10-36); POTASSIUM 4.8 mmol/L (3.5-5.1); SODIUM 139 mmol/L (136-145); TCO2 20 mmol/L (25-35); TOTAL PROTEIN 5.9 g/dL (6.3-8.3)
[2019-01-24] MEDS: PULMICORT INH SCH ×2 (08:06→19:21)
[2019-01-24] MEDS: VANCOMYCIN 1,800 MG in NS 250 ML IV SCH ×2 (08:51→21:32)
[2019-01-24] MEDS: PEPCID PO SCH (08:51)
[2019-01-24] MEDS: MUCINEX PO SCH ×2 (08:51→20:25)
[2019-01-24] MEDS: NEURONTIN PO SCH ×3 (08:52→17:32)
--- NOTE | 2019-01-24 09:37 | Diag Imaging Result Doc PS360 ---
EXAM: CHEST-PORTABLE - 01/24/2019 HISTORY: dyspnea TECHNIQUE: Portable chest COMPARISON: 01/22/2019 FINDINGS: There has been interval decrease in infiltrate and/or atelectasis at the right upper lobe. There are ill-defined trace elsewhere which appear grossly stable. There is no pleural effusion or pneumothorax identified. Heart size is normal. IMPRESSION: Interval decrease in infiltrate and/or atelectasis at right upper lobe. Ill-defined infiltrates elsewhere similar to prior. Electronically signed by Gavin Berrios 01/24/2019 9:35 AM
[2019-01-24 14:06] LABS: HEPATITIS PROFILE ACUTE SEE COMMENTS
[2019-01-24] MEDS: ROBITUSSIN-DM PO PRN ×2 (15:14→19:40)
[2019-01-24] MEDS: ATIVAN IV PRN ×2 (17:38→21:46)
[2019-01-24] MEDS: CULTURELLE PO SCH (20:25)
[2019-01-25] MEDS: MORPHINE IV PRN ×2 (00:46→19:27)
[2019-01-25] MEDS: ROBITUSSIN-DM PO PRN ×4 (00:47→19:28)
[2019-01-25] MEDS: DUONEB (A & A) INH SCH ×6 (03:05→22:39)
[2019-01-25] MEDS: ATIVAN IV PRN ×3 (03:16→20:10)
[2019-01-25] MEDS: SOLU-MEDROL IV SCH ×3 (04:02→20:02)
[2019-01-25] MEDS: ZOSYN 2.25 GM in NS 50 ML IV SCH ×4 (04:02→22:21)
[2019-01-25] MEDS: SYNTHROID PO SCH (06:43)
[2019-01-25] MEDS: HUMALOG (PARKWAY) SUBQ SCH ×4 (06:47→20:23)
[2019-01-25 08:27] LABS: HEMATOCRIT 30.3 % (37.0-47.0); HEMOGLOBIN 9.8 g/dL (12.0-16.0); MCH 27.5 PG (27-31); MCHC 32.3 g/dL (33-37); MCV 84.9 FL (81-99); MPV 8.9 FL (7.4-10.4); RBC 3.57 XMIL (4.2-5.4); RDW 15.4 % (11.5-14.5); WBC 10.8 X1000 (4.8-10.8)
[2019-01-25 08:49] LABS: AGAP 11; ALBUMIN 3.1 g/dL (3.5-5.0); ALKALINE PHOSPHATASE 125 U/L (32-104); BUN 9 mg/dL (8-22); CALCIUM 8.1 mg/dL (8.8-10.2); CHLORIDE 103 mmol/L (98-107); COSMO 278; CREATININE 0.5 mg/dL (0.5-0.9); ESTIMATED GFR > 60; GLUCOSE 164 mg/dL (70-104); GOT 29 U/L (10-30); GPT 98 U/L (10-36); POTASSIUM 4.6 mmol/L (3.5-5.1); SODIUM 138 mmol/L (136-145); TCO2 24 mmol/L (25-35); TOTAL PROTEIN 5.8 g/dL (6.3-8.3)
[2019-01-25] MEDS ORDERED: PRINZIDE 10/12.5MG PO SCH (09:00)
[2019-01-25] MEDS: PULMICORT INH SCH ×2 (09:22→19:25)
[2019-01-25] MEDS: PEPCID PO SCH (09:29)
[2019-01-25] MEDS: CULTURELLE PO SCH ×2 (09:29→20:02)
[2019-01-25] MEDS: NEURONTIN PO SCH ×3 (09:29→16:34)
[2019-01-25] MEDS: MUCINEX PO SCH ×2 (09:29→20:02)
[2019-01-25] MEDS: CYMBALTA PO SCH (09:29)
[2019-01-25] MEDS: VANCOMYCIN 1,800 MG in NS 250 ML IV SCH ×2 (09:30→20:32)
[2019-01-25] MEDS: PRINIVIL PO SCH (09:32)
[2019-01-25] MEDS: HYDROCHLOROTHIAZIDE PO SCH (09:32)
[2019-01-25] MEDS: NS 1,000 ML IV SCH ×2 (11:18→19:35)
--- NOTE | 2019-01-25 15:22 | PROGRESS NOTE ---
DATE: 01/25/2019 SUBJECTIVE: Patient is actually much more awake alert this morning although still easily confused. She started improving last night per the staff. She is actually sitting eating breakfast this morning although frequently falls asleep while she is attempting to eat. PHYSICAL: Temperature 97.8 degrees, pulse 78, respiratory 18, BP 175/97.General: Patient is currently on 5 L per nasal cannula which is an improvement from her non-rebreather that she has been on for the past several days. She is awake although frequently falls asleep while she is trying to eat. She does answer some questions. HEENT: Normocephalic. Neck: Supple. CV: Regular rate. Chest: Relatively clear, no crackles, better air movement. No wheezing. Abdomen: Soft, obese, nondistended. Extremities: Moves all extremities, no edema. Neuro: No focal changes although patient is still somewhat confused. ASSESSMENT: 1. Acute hepatitis. AST, ALT have dropped from 300s to 29 and 125. 2. Diabetes with hyperglycemia. 3. Sepsis. 4. Bilateral pneumonia. 5. Leukocytosis improved, white count is down to 10. 6. Hypertension. 7. Chronic depression. 8. History of seizures. 9. Bipolar schizophrenia. 10. Moderate pulmonary hypertension. 11. Moderate tricuspid regurgitation. 12. Fatty liver. PLAN: Will continue patient in the hospital, continue supportive care, antibiotics, oxygen and will follow. Will leave her in the ICU currently. Greater than 35 minutes was spent in total care. cc: Vernon Harman MD
[2019-01-25] MEDS: SINGULAIR PO SCH (20:02)
[2019-01-25] MEDS: HALDOL IV PRN (21:07)
[2019-01-26] MEDS: ROBITUSSIN-DM PO PRN ×5 (00:15→20:30)
[2019-01-26] MEDS: MORPHINE IV PRN ×4 (00:15→19:33)
[2019-01-26] MEDS: DUONEB (A & A) INH SCH ×6 (03:19→22:36)
[2019-01-26] MEDS: SOLU-MEDROL IV SCH ×3 (04:47→20:06)
[2019-01-26] MEDS: ZOSYN 2.25 GM in NS 50 ML IV SCH ×4 (04:47→22:52)
[2019-01-26] MEDS: NS 1,000 ML IV SCH ×3 (04:52→19:43)
[2019-01-26] MEDS: SYNTHROID PO SCH (06:49)
[2019-01-26] MEDS: HUMALOG (PARKWAY) SUBQ SCH ×4 (06:57→20:45)
[2019-01-26] MEDS: PULMICORT INH SCH ×2 (08:22→19:15)
[2019-01-26] MEDS: VANCOMYCIN 1,800 MG in NS 250 ML IV SCH ×2 (09:00→20:41)
[2019-01-26] MEDS: HYDROCHLOROTHIAZIDE PO SCH (10:12)
[2019-01-26] MEDS: CULTURELLE PO SCH ×2 (10:12→20:06)
[2019-01-26] MEDS: NEURONTIN PO SCH ×3 (10:12→17:42)
[2019-01-26] MEDS: MUCINEX PO SCH ×2 (10:13→20:06)
[2019-01-26] MEDS: CYMBALTA PO SCH (10:13)
[2019-01-26] MEDS: PEPCID PO SCH (10:13)
[2019-01-26] MEDS: PRINIVIL PO SCH (10:13)
[2019-01-26] MEDS: ATIVAN IV PRN ×2 (11:43→20:09)
[2019-01-26] MEDS: SINGULAIR PO SCH (20:06)
[2019-01-26] MEDS: HALDOL IV PRN (20:53)
--- NOTE | 2019-01-26 21:43 | PROGRESS NOTE ---
DATE: 01/26/2019 SUBJECTIVE: Patient notes that she is feeling better. PHYSICAL EXAMINATION: Vital Signs: Reviewed. Temperature 98.3 degrees, pulse 86, respiratory 28, BP 153/60, saturation 93% on 6 L. Unfortunately she continues to desaturate very quickly into the mid 70s, low 80s if she removes her nasal cannula. She is still in moderate hypoxic respiratory distress. HEENT: Normocephalic. Neck: Supple. Cardiovascular: Regular rate. No murmurs. Chest: Decreased breath sounds although improved from admission. She has no current wheezing. Positive rhonchi. No crackles. Abdomen: Soft, nondistended. Extremities: Moves all extremities. Neurologic: She is awake, alert, but still easily confused and disoriented. ASSESSMENT: 1. Moderate hypoxic respiratory failure acute. 2. Sepsis secondary to pneumonia. 3. Pneumonia. 4. Chronic obstructive pulmonary disease with mild exacerbation. 5. Leukocytosis resolved. White count is 10. 6. Acute transaminitis. Her AST and ALT both within 300 range now are effectively back to normal. Undetermined origin. Certainly suspect that she may have ingested some substance that has now worn off. 7. Diabetes. 8. Bipolar schizophrenia. 9. Hypertension. 10. Seizures. PLAN: We will continue patient in the hospital. We have slowly started adding back some of her medications. We will continue antibiotics for her pneumonia as she is improving. We will continue to follow. Will keep her in the ICU given her moderate to severe hypoxic respiratory failure. TIME SPENT: 35 minutes was spent in total care. cc: Vernon Harman MD
[2019-01-27] MEDS: ROBITUSSIN-DM PO PRN ×3 (00:21→08:29)
[2019-01-27] MEDS: MORPHINE IV PRN ×3 (00:21→09:47)
[2019-01-27] MEDS: ATIVAN IV PRN (02:28)
[2019-01-27] MEDS: NS 1,000 ML IV SCH (02:29)
[2019-01-27] MEDS: DUONEB (A & A) INH SCH ×6 (03:15→23:10)
[2019-01-27] MEDS: ZOSYN 2.25 GM in NS 50 ML IV SCH ×5 (04:09→23:27)
[2019-01-27] MEDS: SOLU-MEDROL IV SCH ×2 (04:09→16:23)
[2019-01-27] MEDS: HUMALOG (PARKWAY) SUBQ SCH ×4 (05:20→20:18)
[2019-01-27] MEDS: SYNTHROID PO SCH (06:10)
[2019-01-27] MEDS: PULMICORT INH SCH ×2 (07:55→19:05)
[2019-01-27] MEDS: NEURONTIN PO SCH ×3 (08:28→16:23)
[2019-01-27] MEDS: MUCINEX PO SCH ×2 (08:28→20:17)
[2019-01-27] MEDS: PEPCID PO SCH (08:28)
[2019-01-27] MEDS: PRINIVIL PO SCH (08:28)
[2019-01-27] MEDS: CULTURELLE PO SCH ×2 (08:28→20:17)
[2019-01-27] MEDS: CYMBALTA PO SCH (08:28)
[2019-01-27] MEDS: HYDROCHLOROTHIAZIDE PO SCH (08:28)
[2019-01-27] MEDS: VANCOMYCIN 1,800 MG in NS 250 ML IV SCH ×3 (08:46→23:26)
[2019-01-27] MEDS: HALDOL IV PRN ×2 (09:48→16:23)
[2019-01-27] MEDS ORDERED: ZANAFLEX PO PRN (12:34)
[2019-01-27] MEDS: ROBITUSSIN-AC PO PRN ×2 (12:52→20:17)
[2019-01-27 13:23] LABS: AGAP 10; ALBUMIN 3.2 g/dL (3.5-5.0); ALKALINE PHOSPHATASE 102 U/L (32-104); BUN 10 mg/dL (8-22); CHLORIDE 102 mmol/L (98-107); COSMO 282; CREATININE 0.6 mg/dL (0.5-0.9); ESTIMATED GFR > 60; GLUCOSE 137 mg/dL (70-104); GOT 22 U/L (10-30); GPT 54 U/L (10-36); POTASSIUM 4.2 mmol/L (3.5-5.1); SODIUM 141 mmol/L (136-145); TCO2 29 mmol/L (25-35); TOTAL PROTEIN 5.6 g/dL (6.3-8.3)
[2019-01-27] MEDS: MUCOMYST 20% INH SCH ×2 (13:53→19:05)
[2019-01-27] MEDS ORDERED: BUPRENORPHINE TOP SCH (14:00)
[2019-01-27] MEDS: DETROL LA PO SCH (20:16)
[2019-01-27] MEDS: SINGULAIR PO SCH (20:17)
[2019-01-27] MEDS ORDERED: REQUIP PO SCH (21:00)
[2019-01-27] MEDS ORDERED: MELATONIN PO SCH (21:00)
[2019-01-28] MEDS: SOLU-MEDROL IV SCH (04:37)
[2019-01-28] MEDS: ZOSYN 2.25 GM in NS 50 ML IV SCH ×2 (04:41→11:15)
[2019-01-28] MEDS ORDERED: PRILOSEC ONE (04:45)
[2019-01-28] MEDS: DUONEB (A & A) INH SCH ×3 (05:33→11:23)
[2019-01-28] MEDS ORDERED: LOVENOX SUBQ SCH (06:00)
[2019-01-28] MEDS: SYNTHROID PO SCH (06:05)
[2019-01-28] MEDS: HUMALOG (PARKWAY) SUBQ SCH ×2 (06:07→11:12)
[2019-01-28] MEDS ORDERED: PRILOSEC PO SCH (07:00)
[2019-01-28 07:15] LABS: BASO# 0.01 X1000 (0.0-0.2); BASO% 0.1 % (0.0-0.8); EOS# 0.11 X1000 (0.0-0.7); EOS% 0.9 % (0.0-10.0); HEMATOCRIT 35.5 % (37.0-47.0); HEMOGLOBIN 11.4 g/dL (12.0-16.0); IMM GRAN% 2.5 % (0.0-0.5); LYMPH# 1.71 X1000 (1.2-3.4); LYMPH% 14.5 % (20.5-51.1); MCH 27.1 PG (27-31); MCHC 32.1 g/dL (33-37); MCV 84.3 FL (81-99); MONO# 0.92 X1000 (0.11-0.59); MONO% 7.8 % (1.7-9.3); MPV 9.2 FL (7.4-10.4); NEUT# 8.78 X1000 (1.4-6.5); NEUT% 74.2 % (42.2-75.2); PLT 669 X1000 (130-400); RBC 4.21 XMIL (4.2-5.4); RDW 15.6 % (11.5-14.5); WBC 11.83 X1000 (4.8-10.8)
[2019-01-28] MEDS ORDERED: INCRUSE ELLIPTA INH SCH (07:30)
[2019-01-28] MEDS: MUCOMYST 20% INH SCH (07:42)
[2019-01-28] MEDS: ROBITUSSIN-AC PO PRN (07:48)
[2019-01-28] MEDS: HALDOL IV PRN (07:49)
[2019-01-28] MEDS: CYMBALTA PO SCH (08:01)
[2019-01-28] MEDS: HYDROCHLOROTHIAZIDE PO SCH (08:01)
[2019-01-28] MEDS: NEURONTIN PO SCH (08:01)
[2019-01-28] MEDS: MUCINEX PO SCH (08:01)
[2019-01-28] MEDS: CULTURELLE PO SCH (08:01)
[2019-01-28] MEDS: PRINIVIL PO SCH (08:01)
[2019-01-28] MEDS: PULMICORT INH SCH (08:07)
[2019-01-28] MEDS: VANCOMYCIN 1,800 MG in NS 250 ML IV SCH (08:51)
[2019-01-28] MEDS: DETROL LA PO SCH (09:56)
--- NOTE | 2019-01-28 10:37 | Diag Imaging Result Doc PS360 ---
EXAM: CHEST-2 VIEWS HISTORY: hypoxia TECHNIQUE: Chest two views COMPARISON: 01/24/2019 FINDINGS: Poor inspiratory effort. There are increased interstitial markings in both lungs. These are less pronounced than on the prior study. There calcified left hilar lymph nodes. No pleural effusions. IMPRESSION: Continued interval improvement. Electronically signed by Kevon Lafleur 01/28/2019 10:34 AM
[2019-01-28 12:55] VITALS: BP 145/76
--- NOTE | 2019-01-29 06:56 | PROGRESS NOTE ---
DATE: 01/28/2019 SUBJECTIVE: She is breathing a little bit better. She is still fairly short of breath though. Saturations, she is still around 88 to 89 percent on 5 L, she may be down some. OBJECTIVE: Vital Signs: Blood pressure is 120/88, heart rate of 83, respiratory rate of 24, temperature 98%,O2 saturation 95% on 5 L. Cardiovascular: Regular rate and rhythm. Pulmonary: Bilateral breath sounds, diminished at the bases. Gastrointestinal: Soft, nontender, nondistended. Bowel sounds were positive. LABORATORY DATA: I do not have any new data today. PROBLEM LIST: 1. Acute hypoxic respiratory failure with persistent hypoxia. She is 95% on 5L, which is somewhat of an improvement. Laboratory data, like I said, nothing new. We will repeat ABG, chest x-ray tomorrow and see. 2. Pneumonia. She is on antibiotics, which I think her white count has improved. She is currently on Zosyn and vancomycin. We have added Mucomyst for some mobilization. 3. Chronic obstructive pulmonary disease exacerbation. She seems to be stabilizing. 4. Acute elevation in liver enzymes, which have now resolved. Repeat her levels tomorrow. 5. Diabetes. Appears to be overall controlled. 6. Bipolar, schizophrenia, schizoaffective disorder. Continue regular medications. Again, this appear to be stable, but we do need to work on mobilization, going to get Physical Therapy to start working with her and see how she does. cc: Juan Manuel Hutton MD
--- NOTE | 2019-01-31 13:35 | DISCHARGE SUMMARY ---
ADMISSION DATE: 01/22/2019 DISCHARGE DATE: 01/28/2019 HISTORY AND HOSPITAL COURSE: Patient is seen the day of discharge. She is adamant about going home. Her breathing is better. Physical therapy ambulated her and her saturations actually improved without oxygen or maintained themselves. Her lungs are clear except for diminishment at the bases. Heart rate is stable. Her white count is 11. The rest of the labs look okay. Repeat chest x-ray today showed interval improvement, interstitial pattern improved. We did evaluate for home oxygen and she qualified but she is down to 2 L. Her transient liver enzyme elevation has also resolved or nearly resolved based on the numbers from yesterday. In any case, she was felt stable for discharge. DISCHARGE MEDICATIONS: New medicines will be Augmentin for another 7 days, prednisone taper, Neurontin. She does have a fairly significant chronic cough, so I am going to switch her lisinopril to losartan hydrochlorothiazide. I will Continue her other home medications. DISCHARGE INSTRUCTIONS: She was to return for worsening shortness of breath, cough, or fevers, especially after stopping antibiotics. This is a ezai-on-hida encounter note with SHAHAB Urrutia. TIME SPENT: 32 minute discharge, setting up home oxygen. We will continue to follow. cc: MD Nicolasa Camarillo
--- NOTE | 2019-01-31 14:17 | DISCHARGE SUMMARY ---
ADMISSION DATE: 01/22/2019 DISCHARGE DATE: 01/28/2019 ADMISSION DIAGNOSES: 1. Sepsis secondary to left lower lobe pneumonia. 2. Left lower lobe pneumonia. 3. Mild chronic obstructive pulmonary disease exacerbation. 4. Leukocytosis. 5. Hypoxia. 6. Hyponatremia. 7. Acute kidney injury. 8. Transaminitis. 9. Mildly elevated troponin. 10. Diabetes mellitus type 2. 11. Bipolar schizophrenia. 12. Hypertension. 13. Seizures or seizure disorder. 14. Anxiety. 15. Cerebrovascular accident history. DISCHARGE DIAGNOSES: 1. Moderate hypoxemic respiratory failure that is acute. 2. Sepsis secondary to pneumonia. 3. Pneumonia. 4. Chronic obstructive pulmonary disease with mild exacerbation. 5. Leukocytosis which resolved. 6. Acute transaminitis back to normal. 7. Diabetes mellitus type 2, stable. 8. Bipolar schizophrenia. 9. Hypertension. 10. Seizures. 11. Yyntiebm-tz-mfnwzn pulmonary hypertension 70 mmHg systolic. 12. Atrial fibrillation with rapid ventricular response which had resolved. CONSULTATIONS: None. SURGERIES OR PROCEDURES: None. HOSPITAL COURSE: On 01/22/2019, Ms. Mar Avery came in with complaints of difficulty breathing. She has a medical history of hypertension, hyperlipidemia, COPD, asthma, CVA, seizures, bipolar schizophrenia, and type 2 diabetes and apparently had been having shortness of breath for 1 week. Her O2 saturation was 86% on 4 L nasal cannula. She was hyperventilating and very anxious. She had an elevated white count of 17,000 and low CO2 on her ABGs due to hyperventilation. She had some mild hyponatremia and elevated creatinine. Elevated liver functions studies. Her lactate was 3.6. She was initiated on azithromycin and Rocephin with breathing treatments. Imaging revealed that she had a left lower lobe pneumonia, so she was treated for sepsis secondary to left lower lobe pneumonia. She significantly was hyperventilating in the 50s due to her severe anxiety along with the pneumonia. She was placed on supplemental O2, started on nebulizers, and improved. With IV fluid hydration, her liver functions studies returned to normal. Her CKs improved. Her anxiety was well controlled with Cymbalta. She did have to have occasional dose of Haldol, and she was on Solu-Medrol as well for the COPD exacerbation. Antibiotics were continued, and she improved. For the elevated liver enzymes, there was an abdominal ultrasound performed and all it showed was fatty liver. She had an echo performed which showed a normal ejection fraction. She did have a pulmonary hypertension or tdgxqokb-jg-hbzrwv pulmonary hypertension with 70 mmHg. Of note, she did have some atrial fibrillation with RVR which started on the . It was only for a short time frame and converted on its own without treatment. DISCHARGE VITAL SIGNS: Temperature 98 degrees, heart rate 94, respiratory rate 22, blood pressure 145/76, O2 saturation 97% on 2 L nasal cannula. DISCHARGE LABORATORY DATA: White blood cells 11,000, hemoglobin 11, hematocrit 35, platelet count 662. Yesterday, BMP with sodium 141, potassium 4.2, BUN 10, creatinine 0.6, glucose 137, calcium 8, bilirubin 0.40, AST 22, ALT 54, albumin 3.2. IMAGING: EKG with sinus tachycardia, rate 107, QTc 496. T-wave inversions. Chest x-ray: Poor inspiration, left lower lobe atelectasis versus pneumonia. Another chest x-ray, multifocal infiltrates and small left effusion. Abdominal ultrasound, fatty liver. EKG, atrial fibrillation with RVR. This was on the 23 of January with ventricular rate of 143. On 01/23/2019, echocardiogram with ejection fraction 65%. Also showed [id number] pulmonary hypertension with 70 mmHg systolic. Chest x-ray on the with interval decrease in infiltrates and/or atelectasis in the right upper lobe. Ill-defined infiltrates elsewhere similar to prior. Another chest x-ray on the showed continued improvement. DISCHARGE MEDICATIONS: 1. Montelukast sodium 10 mg p.o. nightly. 2. Ropinirole HCL 1 mg p.o. nightly. 3. Buprenorphine 1 patch weekly. 4. Cymbalta 90 mg p.o. daily. 5. Detrol LA 2 mg p.o. twice daily. 6. Etodolac 500 mg p.o. t.i.d. 7. Pepcid 40 mg p.o. daily. 8. Fluticasone nasally daily. 9. Hydroxyzine 50 to 100 mg p.o. as needed. 10. Umeclidinium bromide 1 puff inhaled daily. 11. Melatonin 5 mg p.o. nightly. 12. Synthroid 50 mcg p.o. daily. 13. Tizanidine 4 mg p.o. twice daily p.r.n. 14. Amoxicillin-potassium/Augmentin 875/125 one tablet p.o. twice daily for 1 week. 15. Albuterol/Atrovent as needed every 4 hours p.r.n. 16. Losartan/hydrochlorothiazide 1 tablet p.o. daily. 17. Maxalt 10 mg p.o. daily. 18. Neurontin 300 mg p.o. t.i.d. 19. Prednisone taper. DG DIET: Regular. DISCHARGE ACTIVITY: As tolerated FOLLOW-UP: Follow up with primary care provider in [address] Nicolasa Goff. DISCHARGE INSTRUCTIONS: Seek attention for worsening dyspnea, cough, or fevers. DISCHARGE DISPOSITION: Home with home health. Dictated by SHAHAB Urrutia for Juan Manuel Hutton MD cc: SHAHAB Urrutia MD
== END 2019-01-28 12:57 | disposition home health service (06) | DRG 871 ==
LOC: P.ED 12:17 → P.ICU 14:46 → SUATTDRO 14:46
PROVIDERS: ATTEND Internal Medicine
CPT/HCPCS: 71010; 71020; 71045; 71046; 76705; 80053; 80074; 80104; 80202; 80301; 80305; 80307; 80320; 81001; 82055; 82550; 82553; 82805; 82948; 83036; 83605; 83735; 84443; 84484; 85025; 85027; 85610; 85730; 87040; 87088; 93005; 93010; 93306; 94640; 94761; 96365; 96375; 97163; 99285; 99291; A9270; G0431; G0434; G0477; G0480; G6040; J0696; J1630; J1650; J1815; J2060; J2270; J2543; J2920; J2930; J3370; J7030; J7040; J7050; XXXXX

== ENCOUNTER 2019-11-30 23:28 | Inpatient (IN) ==
[2019-11-30] MEDS ORDERED: NS 1,000 ML IV ONE (23:49)
--- NOTE | 2019-12-01 00:16 | PROVIDER DOCUMENTATION ---
HPI-General Adult - General Chief Complaint: Near Syncope Time Seen by Provider: 11/30/19 23:36 Source: patient, EMS Allergies/Adverse Reactions: Patient Allergies Allergy/AdvReac Type Severity Reaction Status Date / Time trazodone Allergy Severe RASH Verified 12/01/19 00:42 diphenhydramine Allergy Intermediate SWELLING Verified 12/01/19 00:42 [From Benadryl] ziprasidone HCl * AdvReac Intermediate HEADACHE Verified 12/01/19 00:42 [From Geodon] ziprasidone mesylate * AdvReac Intermediate HEADACHE Verified 12/01/19 00:42 [From Geodon] hemorrhoid cream Allergy Intermediate RASH Uncoded 12/01/19 00:42 Home Medications: Home Medication List Medication Instructions Recorded Confirmed Last Taken Type Levothyroxine Sodium [Synthroid] 50 mcg PO DAILY 05/20/18 12/01/19 11/30/19 History Folic Acid 1 mg PO BID 05/29/19 12/01/19 11/30/19 History Hydrochlorothiazide 25 mg PO DAILY 05/29/19 12/01/19 11/30/19 History Calcium Carbonate/Vit D3 [Caltrate 1 ea PO BID 09/10/19 12/01/19 11/30/19 History 600 + D] Famotidine [Pepcid] 40 mg PO DAILY 10/01/19 12/01/19 11/30/19 History Divalproex E.r. [Depakote ER] 750 mg PO BID 30 Days #180 tab 10/14/19 12/01/19 11/30/19 Rx Fluoxetine [Prozac] 40 mg PO BID 30 Days #120 cap 10/14/19 12/01/19 11/30/19 Rx Fluphenazine [Prolixin] 10 mg PO QHS 30 Days #60 tab 10/14/19 12/01/19 11/30/19 Rx Gabapentin [Neurontin] 800 mg PO 4XDAY 30 Days #240 cap 10/14/19 12/01/19 11/30/19 Rx Hydroxyzine [Atarax] 50 mg PO TID 30 Days #90 tab 10/14/19 12/01/19 11/30/19 Rx Melatonin 3 mg PO QHS 30 Days #30 tab 10/14/19 12/01/19 11/30/19 Rx Topiramate [Topamax] 50 mg PO QHS 30 Days #60 tab 10/14/19 12/01/19 11/30/19 Rx Albuterol Sulfate [Albuterol 2 puff INHALATION Q4-6H PRN PRN 12/01/19 12/01/19 Unknown History Sulfate Hfa] Docusate Sodium [Dok] 100 mg PO HS 12/01/19 12/01/19 11/30/19 History Fluticasone 50 Mcg Nasal Elma 1 spray INTRANASAL DAILY 12/01/19 12/01/19 11/30/19 History [Flonase] Losartan Potassium 50 mg PO DAILY 12/01/19 12/01/19 11/30/19 History Naproxen 500 mg PO BID 12/01/19 12/01/19 11/30/19 History Tizanidine [Zanaflex] 4 mg PO BID 12/01/19 12/01/19 11/30/19 History - History of Present Illness -Gen Adult Nature of Presenting Problems: 49 y/o F presents to the ED with AMS and hypotension. Per EMS they were called as pt was concerned she was hypoglyemic but then found pt to have normal BS but BP of 70 systolic and confusion. Pt able to report she has had diarrhea for several days but denies any other symptoms. No fever, no chest pain. Pt's meds brought with her and it appear that pt has been taking too many as in her dispenser all meds from Sunday, Sunday, Sunday and are missing and today is Sunday. Review of Systems - Adult - REVIEW OF SYSTEMS - ADULT ROS:: limited per condition Constitutional: reports: no symptoms reported Gastrointestinal: reports: diarrhea Past History - Adult - PAST MEDICAL HISTORY-ADULT Review of Records: reports: Old Records Reviewed, Nursing Assessment Review, Medications Reviewed, Social history reviewed & non-contributory. Major Childhood Illnesses: reports: denies history Cardiovascular: reports: HTN, hyperlipidemia Respiratory: reports: asthma, COPD, sleep apnea Gastrointestinal: reports: denies history Obstetrical/Gynecological: reports: denies history Genitourinary: reports: denies history Musculoskeletal: reports: chronic pain, intervertebral disc disease Neurological: reports: CVA, Seizures/Epilepsy Psychiatric: reports: bipolar, depression, psychiatric problems, schizophrenia Endocrine/Immune: reports: Diabetes Other Conditions: reports: denies history - PRIOR SURGERIES/PROCEDURES Surgical/Procedure History: reports: hysterectomy, BTL, tonsillectomy, hernia repair, orthopedic (extremity) (knee), gastric bypass, other (T&A) - IMMUNIZATION STATUS Childhood Immunizations: See Nurse Assessment Flu Vaccine: See Nurse Assessment - FAMILY HISTORY Family History: reviewed, not pertinent Physical Exam-General - PHYSICAL EXAM-ADULT Initial Vital Signs Reviewed: Yes - CONSTITUTIONAL General Appearance: no apparent distress, other (confused) - EYES Eyes: PERRL/EOMI - HEAD, EARS, NOSE, MOUTH & THROAT HENMT: moist mucous membranes, normal ENT inspection - NECK Neck: non-tender, full range of motion, supple - RESPIRATORY Respiratory: chest non-tender, lungs clear, normal breath sounds - CARDIOVASCULAR Cardiovascular: regular rate, rhythm, no edema - GASTROINTESTINAL (ABDOMEN) Abdominal Exam: non tender, soft - MUSCULOSKELETAL Back Exam: normal inspection Extremity: normal range of motion, non-tender - SKIN Integumentary: normal turgor, warm/dry - NEUROLOGIC Neurologic: grossly normal, no motor/sensory deficits, other (slightly confused) - PSYCHIATRIC Psych/Mental Status: other (oriented to self and place, confused as to details) Progress - PLAN OF CARE/RESULTS Progress/Plan/Lab Results: Vital Signs - 8 hr 11/30/19 23:35 Temperature 98.1 F Pulse Rate 58 L Respiratory Rate 19 Blood Pressure 76/39 O2 Sat by Pulse Oximetry 96 Orders Category Date Time Status IV Insertion ORDERED Care 11/30/19 23:49 Completed NEWS Score 2-4:Order NEWS Lactate Series NOW Care 12/01/19 00:[address] ABD/PELVIS W/IV CONT ONLY [CT] Stat Exams 11/30/19 23:[address] HEAD W/O CONTRAST [CT] Stat Exams 11/30/19 23:50 Ordered BLOOD CULTURE [BLDCUL] Stat Lab 11/30/19 23:45 Ordered CBC WITH DIFF [HEME] Stat Lab 11/30/19 23:45 Ordered COMPREHENSIVE METABOLIC PANEL [CHEM] Stat Lab 11/30/19 23:45 Ordered LACTATE, PLASMA [CHEM] Stat Lab 11/30/19 23:45 Ordered LIPASE [CHEM] Stat Lab 11/30/19 23:45 Ordered URINALYSIS [URINALYSIS] Stat Lab 11/30/19 23:49 Uncollected 0.9% Sodium Chloride Inj [Ns] 1,000 ml Med 11/30/19 23:49 Active IV 999 mls/hr hypotension and confusion will further evaluate for causes including but not limited to dehydration, sepsis, ICH, cva, uti, electrolyte imbalance Result Diagrams: 11/30/19 00:20 11/30/19 00:20 - REASSESSMENT Reassessment #1 Status: unchanged (continued hypotension and confusion despite 3L NS. Labs and CT's unremarkable. Likely hypotension due to medication ingestion as 5 days of medications missing. Central line placed and levophed started. Will admit for further evaluation and treatment. Discussed case with Dr. Muhammad, hospitalist, who will see and admit pt) - EKG 1 Time of EKG reading by physician:: 23:48 EKG Read and Signed by:: Mell Tadeo EKG Interpretation (*Must complete 3 of following elements*): Normal (Sinus Rhythm, rate 56, no acute st changes normal axis and intervals) - CT/MRI 1 CT Study: Head Impression: Normal (no acute intracranial findings) 2 CT Study: Abdomen, Pelvis Impression: Normal (per radiologist read: "no acute findings") Procedures - CENTRAL LINE Consent Form Signed?: No (pt confused and no consenting alliance party available) Time-Out Verification Completed?: Yes Central Line Lumen: triple Central Line Procedure Prep: Hand Hygeine Performed, Kit Utilized, Chloraprep, Sterile Body Drape Placed Patient Position (To prevent Air Embolism): Trendelenburg (SC/IJ) Central Line Position: internal jugular (R) Ultrasound Guided?: Yes Hat, mask, sterile gown, & sterile gloves worn by physician?: Yes Site scrubbed vigorously for 30 seconds? (Groin: 2 min): Yes Anesthetic: 1%, Lidocaine w/ Epinephrine Post Procedure: Sutured in place, Sterile field maintained, BioPatch placed, Sterile dressing applied, Blood aspirated from each lumen, Placement verfied by XRAY Complications: none Departure - Departure Date of Disposition Decision: 12/01/19 Time of Disposition Decision: 04:53 DIAGNOSIS: Hypotension Qualifiers: Hypotension type: unspecified hypotension type Qualified Code(s): I95.9 - Hypotension, unspecified Ingestion of unknown medication Qualifiers: Encounter type: initial encounter Injury intent: undetermined intent Qualified Code(s): T50.904A - Poisoning by unspecified drugs, medicaments and biological substances, undetermined, initial encounter Disposition: ADMITTED INPATIENT 09 Certified Medical Emergency: Emergent Condition: Serious - Critical Care Note This patient required my direct & personal management of CC.: Yes Total Time (mins): 60 Critical Care Statement: This patient required my direct personal management to treat or rule out processes, the absence of which, could potentiallly result in sudden, clinically significant life or limb threatening deterioration. Attestation - Physician/ CARLOS Attestation Patient care was provided by Advanced Practice Provider:: No The physician spent face to face time with patient:: Yes Advanced Practice Provider documentation review:: Supervising physician onsite and consulted in the evaluation and care of this patient. The physician did have a face to face encounter with the patient.
[2019-12-01 00:45] LABS: BASO# 0.03 X1000 (0.0-0.2); BASO% 0.4 % (0.0-0.8); EOS# 0.15 X1000 (0.0-0.7); HEMATOCRIT 36.7 % (37.0-47.0); HEMOGLOBIN 11.7 g/dL (12.0-16.0); IMM GRAN# 0.03 X1000 (0.0-0.04); IMM GRAN% 0.4 % (0.0-0.5); LYMPH# 2.44 X1000 (1.2-3.4); LYMPH% 32.2 % (20.5-51.1); MCH 27.7 PG (27-31); MCHC 31.9 g/dL (33-37); MCV 86.8 FL (81-99); MONO# 1.74 X1000 (0.11-0.59); MPV 10.5 FL (7.4-10.4); NEUT# 3.18 X1000 (1.4-6.5); PLT 310 X1000 (130-400); RBC 4.23 XMIL (4.2-5.4); WBC 7.57 X1000 (4.8-10.8)
[2019-12-01 00:58] LABS: ALB/GLOB RATIO 1.3; ALBUMIN 3.1 g/dL (3.5-5.0); CALCIUM 8.3 mg/dL (8.8-10.2); CREATININE 1.3 mg/dL (0.5-0.9); POTASSIUM 4.2 mmol/L (3.5-5.1); TOTAL BILIRUBIN 0.24 mg/dL (0.20-1.00); TOTAL PROTEIN 5.5 g/dL (6.3-8.3)
[2019-12-01] MEDS ORDERED: NS 1,000 ML IV ONE ×2 (02:04→04:09)
[2019-12-01 02:55] LABS: URINE SOURCE CATH
[2019-12-01 03:07] LABS: BILIRUBIN URINE NEGATIVE (NEGATIVE); BLOOD URINE NEGATIVE (NEGATIVE); COLOR YELLOW; GLUCOSE URINE NEGATIVE (NEGATIVE); KETONE URINE NEGATIVE (NEGATIVE); LEUKOCYTES URINE NEGATIVE (NEGATIVE); NITRITE URINE NEGATIVE (NEGATIVE); PROTEIN URINE TRACE mg/dL (NEGATIVE); TURBIDITY URINE CLEAR (CLEAR); UROBILINOGEN URINE NORMAL (NORMAL)
[2019-12-01 03:08] LABS: UR EPITHELIAL CELLS <10 /HPF (<10); URINE BACTERIA NEGATIVE /HPF; URINE RBC <10 /HPF (<10); URINE WBC <10 /HPF (<10)
[2019-12-01] MEDS ORDERED: LEVOPHED 8 MG in D5 1/2 NS 250 ML IV SCH (04:45)
--- NOTE | 2019-12-01 06:16 | Diag Imaging Result Doc PS360 ---
EXAM: CT HEAD W/O CONTRAST HISTORY: ams TECHNIQUE: CT head without contrast COMPARISON: 09/01/2018 FINDINGS: No parenchymal hemorrhage. No epidural or subdural hematoma. No subarachnoid hemorrhage. No mass identified on this noncontrasted exam. No hydrocephalus. No sinus opacification. IMPRESSION: No hemorrhage. Negative brain CT without contrast. A preliminary report was given at 2:07 AM This exam was performed using automated exposure control, adjustment of mA or kV according to patient size, and/or use of iterative reconstruction technique. Electronically signed by Kevon Lafleur 12/01/2019 6:14 AM
[2019-12-01] MEDS ORDERED: ZOFRAN IV PRN (06:37)
[2019-12-01] MEDS ORDERED: D50W SYRINGE IV ONE (06:37)
--- NOTE | 2019-12-01 06:40 | HISTORY AND PHYSICAL ---
PRIMARY CARE PROVIDER: Nicolasa Goff MD CHIEF COMPLAINT: Reported hyperglycemia and low blood pressure. HISTORY OF PRESENT ILLNESS: Ms. Avery is a 49-year-old female with past medical history of hypertension, hyperlipidemia, COPD, asthma, CVA, seizures, bipolar, schizophrenia, and type 2 diabetes, who reported to the ED via EMS. EMS was called because they were concerned that the patient was hypoglycemic. She was found to have a normal blood sugar, but she did have a blood pressure of 70 systolic as well as some confusion. She did say that she had had diarrhea for the past 3 days. She reports that she has been taking her medicines appropriately, and has not missed any doses or taken too many. However, what was in her dispenser, all the medications from Sunday, Sunday and Sunday and Sunday were missing. Upon arrival to the ED, the patient was still hypotensive anywhere from 60s to 80s over 50s and 30s with an acute kidney injury and dehydration from possibly taking too many medications. However, patient denies. PAST MEDICAL HISTORY: Per HPI. PAST SURGICAL HISTORY: Hysterectomy, bilateral tubal ligation, tonsillectomy, gastric bypass, and knee replacement. FAMILY HISTORY: Reviewed and noncontributory. ALLERGIES: Trazodone, Geodon, Benadryl and hemorrhoid cream. SOCIAL HISTORY: She lives with her fiancee and their children as well as her best friend. She is a smoker, and has done so for 30+ years. Denies any alcohol or illicit drug use. REVIEW OF SYSTEMS: Completely negative except for those mentioned in HPI. Patient denied any headache, fever, chills, chest pain, or shortness of breath. No abdominal pain. No nausea or vomiting though she did report diarrhea for several days. PHYSICAL EXAMINATION: VITAL SIGNS: Temperature is 97.5 degrees, heart rate 55, respirations 16, blood pressure 106/64, and O2 is 98% on room air. GENERAL: Ms. Avery is a 49-year-old female who is lying on her left side in the ED on the stretcher in no acute distress. HEENT: Atraumatic, normocephalic. PERRL. NECK: Supple. Trachea midline. CARDIOVASCULAR: S1, S2 appreciated. No murmurs, gallops, or rubs noted. RESPIRATORY: Lung sounds clear. ABDOMEN: Soft, nontender, and nondistended. Positive bowel sounds 4 quadrants. EXTREMITIES: Lower extremities bilateral pedal pulses were weak as well as radial pulses. NEUROLOGIC: Patient knows her name, her date of , and where she is at, however, she did not know how she got to the ER, but she did know that she came in for blood sugar and blood pressure issues. DIAGNOSTIC DATA: Head CT with no acute findings. Abdomen and pelvis CT no acute findings. LABORATORY DATA: White count 7, hemoglobin and hematocrit 11 and 36, and platelet count is 310,000. Chemistries: Sodium 136, potassium 4.2, BUN 23, creatinine 1.3, blood glucose 118, AST 73, ALT 23, lipase 75, and lactate 1.7. Urinalysis with trace protein, negative for bacteria, negative for leukocytes, and negative for nitrates. We ordered a drug screen as well as acetaminophen and salicylate level currently pending. ASSESSMENT AND PLAN: 1. Hypotension, believed secondary to dehydration because of diarrhea been ongoing for several days per patient's report. She was initiated on Levophed, and looks clinically dehydrated. She was given a 3 L bolus. We will continue with aggressive IV hydration. 2. Dehydration secondary to diarrhea. Her dehydration believed to be secondary to diarrhea. We will continue with IV fluids. 3. Acute kidney injury secondary to #2 and #1. 4. Diarrhea. We will check stool studies. Patient denies being around any sick contacts or on any recent antibiotics. 5. Diabetes mellitus type 2. We will continue on pattern blood sugars and sliding scale. 6. Pancreatitis continue NPO, IVFs 7. Toxic encephalopathy Possible overdose on home medications. We will do a drug tox screen. Check acetaminophen and salicylate level. Continue to monitor. The patient denies taking too little or too much medication. The patient denied wanting to harm herself or others. 8. COPD not in exacerbation. 9. Hypertension, now hypotensive. 10. Bipolar schizophrenia aware. 11. CVA in the past. 12. Further recommendations to follow physician evaluation, laboratory and diagnostic data. Dictated by SHAHAB Deng for Edilia Muhammad MD cc: Edilia Muhammad MD Independent exam and assessment performed by me with ADMINISTRATION INTERN at bedside and discussed the above plan of care with ADMINISTRATION INTERN. SUNI
[2019-12-01] MEDS: NS 1,000 ML IV SCH ×3 (06:54→22:14)
[2019-12-01] MEDS: HUMALOG SUBQ SCH ×4 (07:00→22:26)
--- NOTE | 2019-12-01 07:20 | Diag Imaging Result Doc PS360 ---
EXAM: CT ABD/PELVIS W/IV CONT ONLY 11/30/2019 HISTORY: hypotension with abdominal pain TECHNIQUE: This exam was performed using automated exposure control, adjustment of mA or kV according to patient size, and/or use of iterative reconstruction technique. COMMENT: There are no previous abdominal studies available for comparison. Where possible comparison is made with the thoracic study of 08/13/2018. There is some dependent atelectasis in the right lower lobe. This was not present on the previous study. There are multiple granulomata present in the spleen. There has been cholecystectomy. There is apparent focal fatty change in the anterior medial left hepatic lobe which was also present at the time the previous study. The adrenal glands are not enlarged. The pancreas is normal in appearance. There is a surgical clip anterior to the neck of the pancreas. There are multiple cysts in both kidneys. There are prominent extrarenal pelves bilaterally. There is gas and stool throughout much of the colon. There is questionable mucosal thickening in the ascending colon and the right side of the transverse colon. This was not present at the time the previous study. There are surgical changes in the jejunum consistent with gastric bypass, which was also the case on the previous study. There are prominent mesenteric nodes. The appendix is normal in appearance. Pelvis: There has been hysterectomy. The urinary bladder is not distended and there are no abnormal fluid collections or masses. There is no evidence of acute bony abnormality. IMPRESSION: Questionable right sided colitis. Mesenteric adenitis. Minimal right lower lobe atelectasis. Electronically signed by Juancho Maki 12/01/2019 7:17 AM
--- NOTE | 2019-12-01 07:27 | Diag Imaging Result Doc PS360 ---
EXAM: CHEST-1 VIEW HISTORY: line placement TECHNIQUE: Single view COMPARISON: 09/10/2019 FINDINGS: The patient is rotated to the left. Poor inspiratory effort. No cardiomegaly. Pulmonary edema. No pneumonia. There is a right jugular line. Tip overlies the distal stomach or vena cava into the right atrium. No pneumothorax. Pleural effusions identified. Large calcified left hilar lymph node. IMPRESSION: No postprocedural pneumothorax Electronically signed by Kevon Lafleur 12/01/2019 7:24 AM
--- NOTE | 2019-12-01 08:26 | EKG Report ---
Test Performed on : 11/30/2019 11:46:02 PM Test Reason : ED. NO EKG ORDER FOR MUSE Blood Pressure : / mmHG Vent. Rate : 056 BPM Atrial Rate : 056 BPM P-R Int : 150 ms QRS Dur : 092 ms QT Int : 462 ms P-R-T Axes : 047 032 025 degrees QTc Int : 445 ms Sinus bradycardia. Low voltage QRS Borderline ECG When compared with ECG of 01-OCT-2019 13:12, No significant change was found Unconfirmed Result
[2019-12-01] MEDS: PEPCID PO SCH (09:35)
[2019-12-01 10:38] LABS: UR AMPHETAMINES QUAL NONE DETECTED (NONE DETECT); UR BARBITUATES QUAL NONE DETECTED (NONE DETECT); UR BENZODIAZEPIN QUAL NONE DETECTED (NONE DETECT); UR CANNABINOIDS QUAL NONE DETECTED (NONE DETECT); UR COCAINE QUAL NONE DETECTED (NONE DETECT); UR METHADONE QUAL NONE DETECTED (NONE DETECT); UR OPIATES QUAL NONE DETECTED (NONE DETECT); UR OXYCODONE QUAL NONE DETECTED (NONE DETECT); UR PCP QUAL NONE DETECTED (NONE DETECT)
[2019-12-01] MEDS: DEPAKOTE ER PO SCH ×2 (11:40→20:00)
[2019-12-01 11:57] LABS: ACETAMINOPHEN < 1.2 ug/mL (10-30); SALICYLATES < 3.00 mg/dL (3-10)
[2019-12-02 06:07] LABS: BASO# 0.03 X1000 (0.0-0.2); BASO% 0.5 % (0.0-0.8); EOS# 0.18 X1000 (0.0-0.7); EOS% 3.1 % (0.0-10.0); HEMATOCRIT 34.7 % (37.0-47.0); HEMOGLOBIN 11.2 g/dL (12.0-16.0); IMM GRAN# 0.03 X1000 (0.0-0.04); IMM GRAN% 0.5 % (0.0-0.5); LYMPH# 2.31 X1000 (1.2-3.4); LYMPH% 39.7 % (20.5-51.1); MCHC 32.3 g/dL (33-37); MCV 86.8 FL (81-99); MONO# 1.28 X1000 (0.11-0.59); MPV 10.8 FL (7.4-10.4); NEUT# 1.99 X1000 (1.4-6.5); NEUT% 34.2 % (42.2-75.2); PLT 302 X1000 (130-400); RDW 14.7 % (11.5-14.5); WBC 5.82 X1000 (4.8-10.8)
[2019-12-02] MEDS: SYNTHROID PO SCH (06:17)
[2019-12-02] MEDS: NS 1,000 ML IV SCH (06:18)
[2019-12-02] MEDS: HUMALOG SUBQ SCH ×4 (06:19→22:37)
[2019-12-02 06:29] LABS: AGAP 9; ALB/GLOB RATIO 1.7; ALKALINE PHOSPHATASE 57 U/L (32-104); BUN 8 mg/dL (8-22); CALCIUM 8.1 mg/dL (8.8-10.2); CHLORIDE 107 mmol/L (98-107); COSMO 282; CREATININE 0.7 mg/dL (0.5-0.9); ESTIMATED GFR > 60; GLUCOSE 100 mg/dL (70-104); GOT 17 U/L (10-30); GPT 16 U/L (10-36); MAGNESIUM 1.8 mg/dL (1.5-2.7); PHOSPHORUS 3.1 mg/dL (2.7-4.5); POTASSIUM 3.8 mmol/L (3.5-5.1); SODIUM 142 mmol/L (136-145); TCO2 26 mmol/L (25-35); TOTAL BILIRUBIN 0.21 mg/dL (0.20-1.00); TOTAL PROTEIN 4.8 g/dL (6.3-8.3)
--- NOTE | 2019-12-02 07:49 | EKG Report ---
Test Performed on : 12/02/2019 06:47:25 AM Test Reason : bradycardia Blood Pressure : / mmHG Vent. Rate : 061 BPM Atrial Rate : 061 BPM P-R Int : 144 ms QRS Dur : 096 ms QT Int : 426 ms P-R-T Axes : 046 036 025 degrees QTc Int : 428 ms Normal sinus rhythm. Nonspecific T wave abnormality Abnormal ECG When compared with ECG of 30-NOV-2019 23:46, (Unconfirmed) No significant change was found Confirmed by Mulu MANZANARES, Leonid Parekh ([id number]) on 12/02/2019 9:37:30 AM
[2019-12-02 07:53] LABS: BANDS 20 % (0-1); EOS 2 % (1-10); LYMPHS 44 % (21-51); MONO 18 % (1-9); SEGS 14 % (42-75)
[2019-12-02] MEDS: PEPCID PO SCH (08:59)
[2019-12-02] MEDS: DEPAKOTE ER PO SCH ×2 (08:59→23:26)
[2019-12-02] MEDS: 1/2 NS 1,000 ML IV SCH ×2 (09:32→22:36)
[2019-12-02] MEDS: ZANAFLEX PO SCH ×2 (09:32→22:36)
[2019-12-02] MEDS: PROZAC PO SCH ×2 (09:32→22:37)
--- NOTE | 2019-12-02 09:37 | PROGRESS NOTE ---
DATE: 12/02/2019 SUBJECTIVE: The patient seems to be doing better today. She is lying comfortably in bed. She is still complaining of some abdominal discomfort mostly at the level of the left abdomen. As per the patient, she is having diarrhea on and off. She is not sure if this is related to food. She takes famotidine at home. She has been placed on IV fluids because of her dehydration and acute kidney injury. She is tolerating p.o. and she had a formed bowel movement. I will go ahead and put her back on her medications. I will transfer her to the medical floor, monitor for 1 more day. Her blood pressure has been stable. I will decrease the rate of the IV fluids and change it from NS to half NS. She will probably need to follow up with a director of casework services as an outpatient to find out why she is having diarrhea on and off. Her Clostridium difficile colitis is negative. OBJECTIVE: Vital Signs: Temperature 98.5 degrees, pulse 76, respiratory rate 20, blood pressure 121/89, oxygen saturation 95% on room air. HEENT: Head normocephalic. No trauma. PERRLA. Neck: Supple. No JVD. No masses. Central trachea. Chest: Clear to auscultation. No wheezing. No rales. Abdomen: Soft. Some tenderness to palpation at the level of the left abdominal area. No signs of peritoneal irritation. Neurological: The patient is awake, alert. She is oriented x3 at this moment. No focal deficits. LABORATORY: WBC 5.8, hemoglobin 11.2, hematocrit 34.7, platelets 302,000. Sodium 142, potassium 3.8, chloride 107, bicarbonate 26, BUN 8, creatinine 0.7, glucose 100, calcium 8.1, albumin 3. ASSESSMENT AND PLAN: 1. Hypotension, likely secondary to dehydration from diarrhea, resolved. I will continue with gentle IV fluids. She was initiated apparently on Levophed but now she is not on any kind of vasopressors. She has received plenty of IV fluids. She is on a diet. No more diarrhea. 2. Dehydration secondary to the diarrhea resolved. 3. Diarrhea. As per the patient, this has been on and off and it has been happening for a lot of time. I had recommended to follow up with Gastroenterology as an outpatient and take care of her diet. 4. Acute kidney injury secondary to hypotension and dehydration, resolved. 5. Type 2 diabetes. Continue with sliding scale insulin and pattern of blood sugar. 6. Pancreatitis, probably resolved. 7. Toxic encephalopathy. She seems to be awake, alert, and oriented as well today, even to situation. I will go ahead and put her back on her home medications. 8. History of bipolar schizophrenia. I will put her back on her home medications. 9. Hypertension. I will hold any kind of blood pressure medication. Her blood pressure seems to be stable. 10. Chronic obstructive pulmonary disease, not in exacerbation. cc: Kyler Gomes MD
[2019-12-02] MEDS: NEURONTIN PO SCH ×2 (13:01→20:37)
[2019-12-02] MEDS: ATARAX PO SCH ×2 (13:01→20:36)
[2019-12-02] MEDS ORDERED: PROLIXIN PO SCH (21:00)
[2019-12-02] MEDS: FOLIC ACID PO SCH (22:36)
[2019-12-02] MEDS: MELATONIN PO SCH (22:36)
[2019-12-02] MEDS: TOPAMAX PO SCH (22:37)
[2019-12-02] MEDS: NON-FORMULARY MED PO SCH (23:27)
[2019-12-03] MEDS: NEURONTIN PO SCH ×5 (01:29→22:12)
[2019-12-03] MEDS: HUMALOG SUBQ SCH ×4 (06:43→22:15)
[2019-12-03] MEDS: SYNTHROID PO SCH (06:44)
[2019-12-03 07:19] LABS: AGAP 14; BUN 6 mg/dL (8-22); CALCIUM 8.5 mg/dL (8.8-10.2); CHLORIDE 102 mmol/L (98-107); COSMO 273; CREATININE 0.7 mg/dL (0.5-0.9); ESTIMATED GFR > 60; GLUCOSE 98 mg/dL (70-104); POTASSIUM 3.7 mmol/L (3.5-5.1); SODIUM 138 mmol/L (136-145); TCO2 22 mmol/L (25-35)
[2019-12-03] MEDS: DEPAKOTE ER PO SCH ×2 (08:44→22:12)
[2019-12-03] MEDS: PEPCID PO SCH (08:44)
[2019-12-03] MEDS: ZANAFLEX PO SCH ×2 (08:45→22:12)
[2019-12-03] MEDS: FOLIC ACID PO SCH ×2 (08:45→22:15)
[2019-12-03] MEDS: ATARAX PO SCH ×3 (08:45→17:51)
[2019-12-03] MEDS: PROZAC PO SCH ×2 (08:45→22:14)
--- NOTE | 2019-12-03 11:49 | EKG Report ---
Test Performed on : 12/03/2019 11:33:58 AM Test Reason : Badycardia Blood Pressure : / mmHG Vent. Rate : 049 BPM Atrial Rate : 049 BPM P-R Int : 142 ms QRS Dur : 094 ms QT Int : 490 ms P-R-T Axes : 032 030 024 degrees QTc Int : 442 ms Critical Test Result: Low HR Sinus bradycardia. Otherwise normal ECG When compared with ECG of 02-DEC-2019 06:47, Nonspecific T wave abnormality, improved in Anterior leads Confirmed by Mulu MANZANARES, Leonid Parekh ([id number]) on 12/04/2019 2:52:06 PM
--- NOTE | 2019-12-03 14:20 | CARDIOLOGY CONSULTATION ---
DATE: 12/03/2019 HISTORY OF PRESENT ILLNESS: A 49-year-old, lady with past medical history of hypertension, hyperlipidemia, COPD, asthma, bipolar disorder, history of diabetes, came to the emergency room, was noted to have low blood sugar. She also has hypothyroidism. She did have blood pressure of 90s systolic. She has been having diarrhea for the last 4 to 5 days prior to coming to the emergency room. She was given IV fluids, started on Levophed. She also tested negative for C diff. At the present time, her diarrhea is better. From a cardiac standpoint, no previous known cardiac history. Last echocardiogram was done in 2019 with some pulmonary artery hypertension and preserved left ventricular systolic function. She has occasional episodes of chest pain. There are no palpitations associated with any syncope. However, she did feel very weak and had a near syncopal episode of dizziness. At that time, her blood pressure was noted to be in 70s systolic when she came to the emergency room. REVIEW OF SYSTEM: A 14-point review of systems was done. Gastrointestinal System: She has history of diarrhea. There is no hematemesis or melena. Central nervous system: No focal weakness to suggest a CVA or TIA. Genitourinary System: There is no dysuria or hematuria. PAST MEDICAL HISTORY: 1. Hypertension. 2. Diabetes. 3. COPD. 4. Asthma. 5. Hyperlipidemia. 6. CVA. 7. Seizure disorder. 8. Schizophrenia. 9. Bipolar. ALLERGIES: Trazodone, Geodon, Benadryl, hemorrhoid cream. PAST SURGICAL HISTORY: Hysterectomy, bilateral tubal ligation, tonsillectomy, gastric bypass, knee replacement. HOME MEDICATIONS: Levothyroxine 50 mcg, hydrochlorothiazide 25, folic acid, calcium carbonate, famotidine, Topamax, Depakote extended release 750 mg p.o. twice daily, gabapentin, melatonin, Prolixin, Atarax, Prozac 40, Naprosyn 500 b.i.d., Losartan 50, tizanidine, insulin lispro. SOCIAL HISTORY: She lives with her fiance'. She is a smoker, has smoked for 30 years. PHYSICAL EXAMINATION: Vital Signs: Blood pressure was 129/77, pulse 55. Neck: Jugular venous pressure was normal. Cardiovascular: First and second heart sounds were heard. Respiratory System: Normal air entry. Abdomen: Soft, nontender. Central nervous system: Alert, oriented, was moving all 4 extremities. Extremities: No pedal edema. HEENT: Atraumatic, normocephalic. Pupils were equal and reacting to light. LABORATORY EXAMINATION: Sodium 136, potassium 4.2, BUN was 24 and 1.3 when she came in, after hydration BUN is 6, creatinine 0.7. Calcium 8.5. Serum magnesium 1.8. TSH was normal, checked a couple of months back. Hematology: WBC 5.82, hemoglobin 11.2, hematocrit 34.7, platelet count of 302,000. ASSESSMENT: Ms Mar Avery is a 49-year-old lady with past medical history of diabetes, hypertension, hyperlipidemia, chronic obstructive pulmonary disease, cerebrovascular accident, bipolar depression. Comes in with complaints of having had diarrhea for 3 to 4 days prior to admission associated with weakness, brought by EMS services. She has had occasional episodes of chest pain. No previous cardiac history. Symptomatically, she has improved after IV fluids and hydration. Her renal function also has improved to being normal. PROBLEM LIST: 1. Given a chest pain, I have set up to undergo a dobutamine Cardiolite stress test. 2. We will get an echocardiogram to assess cardiac and valvular function. 3. She is bradycardic with sinus bradycardia, heart rate is varying from 47 to 55. She is hypothyroid, she is on levothyroxine. Regardless, we will check her TSH levels as well. 4. Diabetes. Continue with insulin. 5. She is on multiple medications for bipolar, schizophrenia. Recommend continuing with her medications as planned. 6. Hypertension. She was hypotensive when she came in. Right now, her blood pressure is stable. At home, she was taking losartan 50 in addition to hydrochlorothiazide 25. Will recommend restarting her CHANTELLE inhibitors prior to discharge. Thank you for the consult. We will follow hospital course. cc: Arsh Vernon MD
[2019-12-03] MEDS: 1/2 NS 1,000 ML IV SCH (15:03)
[2019-12-03] MEDS: TYLENOL PO PRN (17:51)
--- NOTE | 2019-12-03 18:11 | PROGRESS NOTE ---
DATE: 12/03/2019 SUBJECTIVE: The patient has been complaining of some chest discomfort today and she has she has been bradycardic on and off in the high 40s and 50s, in the other hand, she is still having bowel movements. Yesterday as per the patient, they were solid, but today she is having some liquid bowel movements as well. I have consulted Cardiology Department to evaluate this patient. Hopefully tomorrow she will have a stress test done, she seems to be euvolemic. The orthostatic vital signs are stable. She has been complaining of some dizziness. We will monitor. OBJECTIVE: Vital Signs: Temperature 97.3 degrees, pulse 57, respiratory rate 20, blood pressure 134/82 oxygen saturation 100% on room air. HEENT: Head normocephalic. No trauma. Neck: Supple. No JVD. No masses. Central trachea. Chest: Clear to auscultation. No wheezing. No rales. Cardiovascular: RRR. Bradycardic. Abdomen: Soft. Mild tenderness to palpation at the level of the left abdominal area. No signs of peritoneal irritation though. Neurological: Awake, alert, she is oriented. No focal deficits. LABORATORY: Sodium 138, potassium 3.7, chloride 102, bicarbonate 22, BUN 6, creatinine 0.7 glucose 98, calcium 8.5. ASSESSMENT AND PLAN: 1. Hypotension secondary to dehydration from diarrhea, resolved. She is getting gentle IV fluids. She was initiated apparently on Levophed but that has been stopped already. She is on a diet. She has been having some loose bowel movements today and apparently yesterday they were formed. 2. Dehydration to secondary to diarrhea, resolved. 3. Diarrhea. As per the patient, she has been having this kind of problems on and off. She will probably need to follow up with Gastroenterology as an outpatient and take care of her diet. 4. Chest pain/bradycardia and dizziness, now this patient is complaining of some chest pain bradycardia, since she has some risk factors like obesity and diabetes, cardiology Department evaluated the patient. It looks like she will have a and a stress test done tomorrow. 5. Pancreatitis, continue to monitor, likely resolved. 6. Acute kidney injury secondary to hypotension and dehydration, resolved. 7. Type 2 diabetes, stable. 8. Toxic encephalopathy, basically resolved. 9. History of bipolar schizophrenia. Continue home medications. 10. Hypertension. She is not on any blood pressure medication at this moment. Blood pressure seems to be stable. 11. Chronic obstructive pulmonary disease, not in exacerbation. I have requested a new set of C. Difficile toxin and antigen for this patient, and both of them are negative again. cc: Kyler Gomes MD
[2019-12-03] MEDS: MELATONIN PO SCH (22:14)
[2019-12-03] MEDS: NON-FORMULARY MED PO SCH (22:15)
[2019-12-03] MEDS: TOPAMAX PO SCH (22:15)
--- NOTE | 2019-12-03 23:50 | ECHO REPORT ---
ORDER DATE: 12/03/2019 MEASUREMENTS: Septal thickness 0.6, left ventricular internal diameter in diastole 5.5, posterior wall thickness 0.8. Aortic root 2.6, left atrium 3.9. SUMMARY: 1. Technically difficult study due to limited acoustic window quality. 2. Aortic valve is trileaflet and opens normally on 2-dimensional images. Peak gradient across the valve is less than 10 mmHg. Mitral and tricuspid valves are without evidence of structural abnormality, while pulmonic valve is not well demonstrated. There is mild mitral regurgitation and [id number] tricuspid regurgitation. The estimated systolic PA pressure by Doppler is 35 to 40 mmHg, suggesting mild pulmonary hypertension. There is trace pulmonic insufficiency. The aortic root is normal size. 3. Normal left ventricular dimensions demonstrated. The estimated left ejection fraction appears to be at least 55%. No regional wall motion abnormality can be appreciated. Left atrium is borderline enlarged. Right atrium is borderline enlarged. The right ventricle is mildly enlarged with grossly preserved right ventricular systolic function. 4. No pericardial effusion. 5. Appearance of inferior vena cava suggests normal central venous pressure. 6. Intravenous agitated saline contrast study negative for right to left intracardiac shunting. CONCLUSIONS: 1. Technically difficult study. 2. Mild mitral regurgitation. 3. Mild to moderate tricuspid regurgitation with mild pulmonary hypertension by Doppler. 4. Estimated left ejection fraction at least 55%. 5. Borderline biatrial enlargement. 6. Mild right ventricular enlargement. cc: MD Jennifer Duong, ANYA CULP
[2019-12-04] MEDS: 1/2 NS 1,000 ML IV SCH ×2 (03:52→18:27)
[2019-12-04] MEDS: HUMALOG SUBQ SCH ×4 (06:35→21:06)
[2019-12-04] MEDS: SYNTHROID PO SCH (06:35)
--- NOTE | 2019-12-04 07:26 | EKG Report ---
Test Performed on : 12/04/2019 06:59:14 AM Test Reason : bradycardia Blood Pressure : / mmHG Vent. Rate : 053 BPM Atrial Rate : 053 BPM P-R Int : 148 ms QRS Dur : 092 ms QT Int : 486 ms P-R-T Axes : 043 023 014 degrees QTc Int : 456 ms Sinus bradycardia. Otherwise normal ECG When compared with ECG of 03-DEC-2019 11:33, (Unconfirmed) No significant change was found Confirmed by Mulu MANZANARES, Leonid Parekh ([id number]) on 12/04/2019 2:52:41 PM
[2019-12-04] MEDS ORDERED: DOBUTAMINE 250 MG/D5W 250 MG/250 ML IV.SOLN ONE (07:58)
[2019-12-04 08:17] LABS: AGAP 11; BUN 6 mg/dL (8-22); CALCIUM 8.3 mg/dL (8.8-10.2); CHLORIDE 106 mmol/L (98-107); COSMO 283; CREATININE 0.7 mg/dL (0.5-0.9); ESTIMATED GFR > 60; GLUCOSE 101 mg/dL (70-104); MAGNESIUM 1.8 mg/dL (1.5-2.7); PHOSPHORUS 3.9 mg/dL (2.7-4.5); POTASSIUM 3.8 mmol/L (3.5-5.1); SODIUM 143 mmol/L (136-145); TCO2 26 mmol/L (25-35)
[2019-12-04] MEDS ORDERED: ATROPINE SYRINGE ONE (08:47)
[2019-12-04] MEDS: PEPCID PO SCH (10:55)
[2019-12-04] MEDS: ATARAX PO SCH ×3 (10:55→18:26)
[2019-12-04] MEDS: NEURONTIN PO SCH ×4 (10:55→21:07)
[2019-12-04] MEDS: PROZAC PO SCH ×2 (10:55→21:05)
[2019-12-04] MEDS: ZANAFLEX PO SCH ×2 (10:56→21:05)
[2019-12-04] MEDS: FOLIC ACID PO SCH ×2 (10:56→21:05)
[2019-12-04] MEDS: DEPAKOTE ER PO SCH ×2 (10:56→21:05)
[2019-12-04] MEDS ORDERED: IMODIUM PO PRN (11:04)
--- NOTE | 2019-12-04 14:29 | Diag Imaging Result Document ---
PROCEDURE NAME: MYOCARDIAL PERF SCAN, STR/REST - 12/03/2019 INDICATION: Chest pain, bradycardia. PROCEDURES PERFORMED: 1. Dobutamine stress. 2. Two-day stress rest myocardial perfusion imaging (rest dose 29.4 mCi, stress dose 36.7 mCi). DOBUTAMINE STRESS RESULTS: 1. Baseline EKG shows sinus rhythm. 2. There is no clear evidence of ischemic related EKG changes or significant arrhythmias. Occasional PVCs were identified. PERFUSION IMAGING RESULTS: 1. No evidence of abnormal extracardiac uptake. 2. TID ratio is 1.01. 3. There is no evidence of stress-related defects. There is some increased gut uptake interfering with interpretation of the inferior wall on stress images but overall, again, I do not see any obvious evidence of ischemia. 4. Normal ejection fraction of 68% on rest and 73% on stress. End-diastolic volume on stress is 128, end-systolic volume 35. Normal wall motion. cc: MD Jennifer Roberson PA
[2019-12-04] MEDS: TYLENOL PO PRN (14:50)
--- NOTE | 2019-12-04 15:11 | PROGRESS NOTE ---
DATE: 12/04/2019 SUBJECTIVE: The patient is still having episodes of bradycardia and she is still complaining of some dizziness, as per the patient she has a past medical history of seizure disorder as well as bipolar, schizophrenia, she is still having diarrhea, but she is tolerating p.o. I checked the Clostridium difficile toxin and antigen twice and both have been negative. OBJECTIVE: Vital signs: Temperature 97.9 degrees, pulse 52, respiratory rate 18, blood pressure 112/58, oxygen saturation 98% on room air. HEENT: Head normocephalic, no trauma. PERRLA. Neck: Supple. No JVD. No masses. Central trachea. Chest: Clear to auscultation. No wheezing. No rales. Cardiovascular: RRR, bradycardic. Abdomen: Soft, some tenderness to palpation at the level of the left abdominal area. No signs of peritoneal irritation. Neurological examination: The patient is awake. She is oriented. No focal deficits. LABORATORY: Sodium 143, potassium 3.8, chloride 106, bicarbonate 26, BUN 6, creatinine 0.7, glucose 101, calcium 8.3, phosphorus 3.9, magnesium 1.8. ASSESSMENT AND PLAN: 1. Hypotension secondary to dehydration from diarrhea, resolved. She is still having episodes of diarrhea. She was apparently initiated on Levophed but that was stopped a few days ago already. She is on a diet. She is tolerating p.o., she is still on gentle IV fluids. 2. Dehydration secondary to diarrhea, resolved. 3. Diarrhea. As per the patient, she has been having this kind of problems on and off. She will probably need to follow up with Gastroenterology Department as an outpatient or even inpatient if the diarrhea does not stop. I will give her a dose of loperamide to see how she does. 4. Chest pain/bradycardia and dizziness. She had a stress test done and they did not see any acute abnormality. I will wait for Cardiology recommendations regarding her bradycardia. 5. Pancreatitis, resolved. 6. Acute kidney injury secondary to hypotension and dehydration, resolved. 7. Type 2 diabetes. This seems to be stable. 8. Toxic encephalopathy, basically resolved. 9. History of bipolar and schizophrenia and as per the patient seizure disorder. Continue with home medications. 10. Hypertension, actually she is not on any kind of blood pressure medication at this moment because her blood pressure has been stable. At home, she is on losartan and hydrochlorothiazide, which I discontinued. 11. Chronic obstructive pulmonary disease, not in exacerbation. Clostridium difficile toxin and antigen has been negative x2. She is still apparently having episodes of diarrhea. I put this patient on Imodium to see how she does, apparently she has been having this kind of problems on and off. I am concerned about IBS or any other problems like microscopic colitis, if tomorrow this patient is still about the same, probably we need to get Gastroenterology Department to evaluate this patient, in the other hand, pending final recommendations by Cardiology Department. cc: Kyler Gomes MD
[2019-12-04] MEDS: MELATONIN PO SCH (21:05)
[2019-12-04] MEDS: TOPAMAX PO SCH (21:05)
[2019-12-04] MEDS: NON-FORMULARY MED PO SCH (21:05)
[2019-12-05] MEDS: HUMALOG SUBQ SCH ×4 (06:17→21:24)
[2019-12-05] MEDS: SYNTHROID PO SCH (06:17)
[2019-12-05 06:42] LABS: BASO# 0.05 X1000 (0.0-0.2); BASO% 0.6 % (0.0-0.8); EOS# 0.33 X1000 (0.0-0.7); EOS% 4.1 % (0.0-10.0); HEMATOCRIT 34.7 % (37.0-47.0); IMM GRAN# 0.46 X1000 (0.0-0.04); IMM GRAN% 5.7 % (0.0-0.5); LYMPH# 3.26 X1000 (1.2-3.4); LYMPH% 40.1 % (20.5-51.1); MCH 27.5 PG (27-31); MCHC 31.7 g/dL (33-37); MCV 86.8 FL (81-99); MONO# 1.42 X1000 (0.11-0.59); MONO% 17.5 % (1.7-9.3); MPV 9.6 FL (7.4-10.4); PLT 325 X1000 (130-400); RDW 14.7 % (11.5-14.5); WBC 8.12 X1000 (4.8-10.8)
[2019-12-05 07:05] LABS: AGAP 12; ALB/GLOB RATIO 1.4; ALBUMIN 3.2 g/dL (3.5-5.0); ALKALINE PHOSPHATASE 59 U/L (32-104); BUN 5 mg/dL (8-22); CALCIUM 8.5 mg/dL (8.8-10.2); CHLORIDE 104 mmol/L (98-107); COSMO 277; CREATININE 0.8 mg/dL (0.5-0.9); ESTIMATED GFR > 60; GLUCOSE 104 mg/dL (70-104); GOT 24 U/L (10-30); GPT 25 U/L (10-36); MAGNESIUM 1.9 mg/dL (1.5-2.7); PHOSPHORUS 3.5 mg/dL (2.7-4.5); SODIUM 140 mmol/L (136-145); TCO2 24 mmol/L (25-35); TOTAL BILIRUBIN 0.19 mg/dL (0.20-1.00); TOTAL PROTEIN 5.5 g/dL (6.3-8.3)
[2019-12-05] MEDS: DEPAKOTE ER PO SCH ×2 (08:52→21:20)
[2019-12-05] MEDS: ZANAFLEX PO SCH ×2 (08:52→21:20)
[2019-12-05] MEDS: ATARAX PO SCH ×3 (08:52→17:50)
[2019-12-05] MEDS: PEPCID PO SCH (08:52)
[2019-12-05] MEDS: FOLIC ACID PO SCH ×2 (08:52→21:19)
[2019-12-05] MEDS: PROZAC PO SCH ×2 (08:52→21:19)
[2019-12-05] MEDS: NEURONTIN PO SCH ×4 (08:55→21:20)
[2019-12-05] MEDS: 1/2 NS 1,000 ML IV SCH ×2 (12:35→21:24)
--- NOTE | 2019-12-05 16:49 | PROGRESS NOTE ---
DATE: 12/05/2019 I have seen, examined Ms. Avery today, Ms. Avery refers to be doing well, has not had any more of the dizzy spells. She was sitting at the edge of the bed. OBJECTIVE: Vitals: Blood pressure is 131/69, pulse of 55, respiration is 18, temperature 98.2 degrees, patient is saturating 98% on room air. Orthostatic vitals have also been reviewed. Patient kind of dipped down on her blood pressure when she stood up. Ms. Avery 49-year-old morbidly obese female. She was sitting at the edge of the bed no distress. Mucosa is pink and slightly dry. Anicteric. Acyanotic. Neck: Supple. Chest: Clear to auscultation. No crepitations, no rhonchi. Cardiovascular: Regular rate and rhythm. Abdomen: Soft, nontender. Bowel sounds present. Extremities: No pedal edema. [employer]IC: Patient is awake, alert and oriented. LABORATORY DATA: CBC shows mild normocytic anemia. Chemistry is also reviewed, completely within normal range. ASSESSMENT: 1. Near syncopal episode, most likely due to orthostatic hypotension with superimposed vasovagal reaction. Patient's orthostatic vitals continues to be abnormal. We are going to continue with the fluids resuscitation. 2. Acute kidney injury secondary to volume depletion, improved. 3. Clinical volume depletion on admission improved. Will continue with hydration. 4. History of bipolar and schizophrenia. 5. History of seizure disorder. 6. Chronic obstructive pulmonary disease currently not in exacerbation. 7. Hypertension. Patient is currently off medication due to borderline low blood pressures. So in general I think Ms. Avery is doing well. I was in the room when the nurse help desk assistant was taking her orthostatic vitals which was slightly abnormal. She did say she felt slightly dizzy so we going to continue with the IV fluids, continue with her home medications and reevaluate her in the morning, hopefully possible discharge. Of note, Ms. Avery is also on a lot of psychotropic medications for her mental illness. Will plan to continue this. cc: Wisam Mandujano MD [facility] CENTERDarell
[2019-12-05] MEDS: TYLENOL PO PRN (19:19)
[2019-12-05] MEDS: TOPAMAX PO SCH (21:19)
[2019-12-05] MEDS: MELATONIN PO SCH (21:19)
[2019-12-05] MEDS: NON-FORMULARY MED PO SCH (21:21)
[2019-12-06] MEDS: 1/2 NS 1,000 ML IV SCH ×2 (05:18→06:40)
[2019-12-06] MEDS: HUMALOG SUBQ SCH ×2 (06:38→11:15)
[2019-12-06] MEDS: SYNTHROID PO SCH (06:38)
[2019-12-06] MEDS: PEPCID PO SCH (08:07)
[2019-12-06] MEDS: DEPAKOTE ER PO SCH (08:07)
[2019-12-06] MEDS: PROZAC PO SCH (08:07)
[2019-12-06] MEDS: FOLIC ACID PO SCH (08:08)
[2019-12-06] MEDS: ATARAX PO SCH ×2 (08:08→12:24)
[2019-12-06] MEDS: ZANAFLEX PO SCH (08:08)
[2019-12-06] MEDS: NEURONTIN PO SCH ×2 (08:08→12:24)
[2019-12-06] MEDS ORDERED: THERA M PLUS PO SCH (09:00)
[2019-12-06 11:51] VITALS: BP 118/71
--- NOTE | 2019-12-06 16:14 | DISCHARGE SUMMARY ---
ADMISSION DATE: 12/01/2019 DISCHARGE DATE: 12/06/2019 DISPOSITION: Home. FOLLOWUP: 1. Dr. Cardoza. 2. Dr. Kirkpatrick. 3. Dr. Vernon. INVASIVE PROCEDURES DURING ADMISSION: None. IMAGING STUDIES: 1. A CT scan of the abdomen with and without IV contrast show questionable right-sided colitis, mesenteric adenitis, minimal right lower lobe atelectasis. A CT scan of the head without contrast showed no hemorrhage. 2. A chest x-ray showed no post procedural pneumothorax after a line was placed. 3. An echocardiogram showed an ejection fraction of about 55%, borderline biatrial enlargement and mild right ventricular enlargement. 4. A stress test showed no obvious evidence of ischemia, normal ejection fraction of 68%. ADMISSION DIAGNOSES: 1. Hypotension. 2. Dehydration. 3. Diarrhea. 4. Diabetes mellitus. 5. Toxic encephalopathy, possibly overdose on medications. 6. Bipolar. DIAGNOSES AT THE TIME OF DISCHARGE: 1. Near syncopal episode, most likely due to orthostatic hypotension with superimposed vasovagal reaction. 2. Acute kidney injury secondary to volume depletion. 3. Altered mental status, presumably from psychotropic medications. 4. History of bipolar and schizophrenia. 5. History of seizure disorder. 6. Chronic obstructive pulmonary disease, currently not in exacerbation. 7. Hypertension. Medications have been withheld because of low blood pressure readings. DISCHARGE MEDICATIONS: 1. Levothyroxine 50 mcg p.o. daily. 2. Folic acid 1 mg b.i.d. 3. Famotidine 40 mg p.o. daily. 4. Topamax 50 mg p.o. at bedtime. 5. Depakote 750 b.i.d. 6. Gabapentin 800 four times per day. 7. Melatonin 3 mg p.o. at bedtime. 8. Fluphenazine 10 mg p.o. at bedtime. 9. Hydroxyzine 50 mg 3 times per day. 10. Fluoxetine 40 mg b.i.d. 11. Colace 100 mg p.o. at bedtime. 12. Fluticasone nasal spray. 13. Multivitamin 1 tab daily. 14. Blood pressure machine and glucometer also ordered. 15. Medications that have been discontinued for now are hydrochlorothiazide, naproxen, losartan. PRESENTING COMPLAINT: Low blood pressure and hyperglycemia. HISTORY OF PRESENTING COMPLAINT: Ms. Avery is a 49-year-old female with mental health disease including bipolar schizophrenia on multiple psychotropic medications. She is also hypertensive on hydrochlorothiazide and losartan, came to the emergency room because the patient was found to be extremely hypotensive with a blood pressure of 70, was also confused. The patient is said to have been having diarrhea for the past 3 days. Upon presentation, she was found to be remarkably dehydrated. She was admitted for further medical care. HOSPITAL COURSE: Ms. Avery was admitted to the medical floor and was started on IV fluids. The stool was sent for cultures which all came back negative. She was very positive on orthostatic. The blood pressure medications as well as her diuretic were all withheld. Over the course of the hospital stay, she gradually got better, improved. Her diarrhea resolved. Blood pressure continues to be on the normal side. She denies any more dizziness or sensation of wanting to black out. Ms. Avery was also evaluated multiple times by physical therapy, including today where she was able to do 250 with full weightbearing with contact guard assistance. I think Ms. Avery is clinically stable to be discharged. Obviously, we went over all her psychotropic medications, which I think they are just too many and I have advised that she follows up with her mental health team to readdress the need for all of these medications at the same time. For now, I have withheld her blood pressure medications, and I have advised that she follows up with her primary care. I have also advised that she check her blood pressure at least twice per day for the next couple days until she gets to see her primary care doctor, so she will be able to discuss the new numbers with her primary care provider. At the time of the discharge, her vitals are blood pressure is 114/40, pulse of 59, respirations 20, temperature 97.7 degrees, the patient is saturating 99% on room air. Time spent for discharge is 38 minutes. cc: Wisam Mandujano MD
== END 2019-12-06 13:40 | disposition home or self-care (01) | DRG 640 ==
LOC: ED 23:28 → EDIPHOLD 12-01 05:29 → SUATTDRO 12-01 05:29 → ICU 12-01 09:50 → 4N 12-02 14:37
PROVIDERS: ATTEND Internal Medicine